=== PATIENT | male | born 1945 | race Caucasian/White ===

== ENCOUNTER 2024-02-11 20:01 | Inpatient (IN) | payer OTHER, SELFPAY ==
[2024-02-11 17:16] VITALS: BP 132/62; BMI 23.9
--- NOTE | 2024-02-11 17:33 | ED.GENMED ---
History of Present Illness
General
Chief Complaint: Weakness
Source: patient
Exam Limitations: none
Time Seen by Provider: 02/11/24 17:17
Travel History
Have you had any contact with someone who has COVID-19?: No
Do you have any symptoms of coronavirus? Fever > 100 degrees, chills, cough, shortness of breath, sore throat, loss of taste or smell, muscle aches, or headache?: No
History of Present Illness
History of Present Illness:
See MDM
Past History
Past History
ED Past Medical History: GERD, HTN and Hypothyroidism
ED Past Surgical History: Cardiac (Pacemaker)
Phy Exam
Physical Exam
Physical Exam:
See MDM
Course
Orders/Labs/Results
Orders:
Orders
02/11/24 17:17
EKG [Electrocardiogram (*1)] Urgent
Reason for Study: Tachycardia
EKG- Treatment ONCE
02/11/24 17:23
Complete Blood Count/With Diff Urgent
Comprehensive Metabolic Panel Urgent
02/11/24 17:30
CT Chest Pe Study Urgent
Comment:
Reason For Exam: hemoptysis, SOB
02/11/24 17:31
NT-proBNP Urgent
PTT Urgent
Prothrombin Time Urgent
Troponin I Urgent
02/11/24 17:33
COVID-19 Antigen Urgent
Source: Nasal Swab
02/11/24 18:50
Azithromycin 500 mg/250 ml [Zithromax Infusion] 500 mg in 250 ml IV NOW
CefTRIAXone [Rocephin] 2,000 mg IV NOW STA
02/11/24 19:04
Blood Culture Q30M
NAVI Source: Blood/Venous
Specimen Description:
02/11/24 19:30
Blood Culture Q30M
NAVI Source: Blood/Venous
Specimen Description:
Abnormal Lab Results
02/11/24
17:23
RBC 4.26 L 10^6/uL
(4.70-6.10)
Hgb 12.4 L g/dL
(13.0-18.0)
Hct 35.9 L %
(39.0-52.0)
Absolute Lymphs (auto) 0.7 L 10^3/uL
(1.2-3.4)
Absolute Monos (auto) 0.7 H 10^3/uL
(0.1-0.6)
Neutrophils % 75.6 H %
(42.2-75.2)
Lymphocytes % 10.0 L %
(20.5-51.1)
Glucose 145 H mg/dl
(70-99)
AST 16 L U/L
(17-59)
Total Protein 5.7 L g/dl
(6.3-8.2)
Albumin 3.4 L g/dl
(3.5-5.0)
02/11/24 17:23
02/11/24 17:23
Vital Signs
Initial and Last Documented VS:
Initial Vital Signs
Temp Pulse Resp BP Pulse Ox
98.4 F 85 22 132/62 95
02/11/24 17:16 02/11/24 17:16 02/11/24 17:16 02/11/24 17:16 02/11/24 17:16
Last Documented Vital Signs
Temp Pulse Resp BP Pulse Ox
98.4 F 73 13 132/62 94
02/11/24 17:16 02/11/24 17:45 02/11/24 17:45 02/11/24 17:16 02/11/24 17:45
MDM/Problems Addressed
Differential Diagnosis Includes:
HPI and MDM Narrative:
78-year-old male presenting with shortness of breath with exertion. Patient has a history of pacemaker and COPD but seems unsure with history of cardiac stents. Patient states his COPD is otherwise well-controlled. Symptoms have been ongoing for
the past week or so. He denies chest pain. He has noted increased cough now with blood-tinged phlegm. Patient denies being on blood thinners
Given his hemoptysis with shortness of breath with exertion, will obtain CT to rule out PE. Will obtain EKG and troponin and we will consider admitting given age and complaint
Patient denies history of cardiac stents but son believes patient has stents
Physical exam
General: Well appearing and non-toxic
HEENT: protecting airway
Neck: appears supple
CV: No evidence of cyanosis. Regular rate and rhythm
Resp: No accessory muscle use. Lungs clear
Abd: Non-distended
Extremities: No deformities
Neuro: alert
Psych: Normal affect
Skin: Intact
Problems Addressed including Acute and Chronic Conditions affecting care:
1. Hemoptysis
Acuity: acute
Prognosis: stable
Details: We will obtain CT to rule out pulmonary embolism
2. Exertional dyspnea
Acuity: acute
Prognosis: stable
Details: Given age and complaint, will obtain troponin
3. Multifocal pneumonia
Acuity: acute
Prognosis: stable
Details: Patient started on IV azithromycin and IV Rocephin
Updates
CT shows no evidence of PE but there is evidence of multifocal pneumonia. I had a long discussion with patient and family at bedside. Given his symptoms, will start IV antibiotics and admit
Differential Diagnosis (but not limited to): Pneumonia, pulmonary embolism, ACS
Testing considered: D-dimer but will go straight to CT given his complaint
Drug therapy (if applicable): OTC meds, please see d/c instruction regarding Rx drugs
Amount and/or Complexity of Data Reviewed
Clinical info obtained from: Patient. Son at bedside indicating that his cardiac office wanted him to go to the hospital on Friday for evaluation
External data reviewed: N/A
Labs I independently reviewed (but not limited to): Troponin normal
Radiology: The CT scan was personally and independently reviewed. In addition, official CT report reviewed.
Pulse Ox: not hypoxic
EKG independently reviewed: Sinus rhythm, bifascicular block, no STEMI
District Supervisor: Paced rhythm
Critical Care: N/A
Risk of Complication:
Social Determinants of health: Good social support
Discussed with other providers: hospitalist
Escalation of Care includes Admit/Obs: Given the multifocal pneumonia with exertional dyspnea, will start IV antibiotics and admit
Occasional wrong word or 'sound a like' substitutions may have occurred due to the inherent limitations of voice recognition software. Read the chart carefully and recognize, using context, where substitutions have occurred.
*Critical Care Note
Total Time (30-74mins, 75-104mins- exclusive of procedures): Not Applicable
ED Attending Note
-
Portions of this chart may have been created with voice recognition software.� Occasional wrong word or��sound alike� substitutions may have occurred due to the inherent limitations of voice recognition software.
Discharge Plan
Departure
Patient Disposition: Admit
Date of Disposition: 02/11/24
Time of Disposition: 19:29
Admit to: Med/Surg
Presentation/result/management discussed w/ accepting MD/DO: Hospitalist
Discharge Problem:
Multifocal pneumonia, [place] (dyspnea on exertion)
Prescriptions:
No Action
atorvastatin 80 mg Tablet
40 mg PO QPM
omeprazole 40 mg Capsule,Delayed Release(Dr/Ec)
40 mg PO DAILY
levothyroxine 100 mcg Tablet
100 mcg PO DAILY
losartan 100 mg Tablet
100 mg PO DAILY
fluticasone propionate 50 mcg/actuation [place],Suspension
1 spray INTRANASAL BID
duloxetine 60 mg Capsule,Delayed Release(Dr/Ec)
60 mg PO DAILY
fluticasone propion-salmeterol [Wixela Inhub] 250-50 mcg/dose Blister With Device
1 inh INHALATION R BID
aspirin 81 mg Tablet,Delayed Release (Dr/Ec)
81 mg PO DAILY
tamsulosin 0.4 mg Capsule
0.4 mg PO QPM
albuterol sulfate 90 mcg/actuation Hfa Aerosol Inhaler
2 puff INHALATION R Q4 PRN (Reason: sob/wheezing)
tiotropium bromide [Spiriva with HandiHaler] 18 mcg capsule, w/inhalation device
1 cap inhalation R DAILY
Referrals:
Marti Casey NP [Family Provider] -
Interventions
Interventions:
*Risk Screen - Suicide Last Done: 02/11/24 17:16
*General Assessment Last Done: 02/11/24 17:16
*Neglect/Abuse Screening Last Done: 02/11/24 17:16
ED- Fall Risk Assessment Last Done: 02/11/24 17:21
*ED COVID-19 Vaccine History Last Done: 02/11/24 17:16
ED- Cardiac Assessment Last Done: 02/11/24 17:21
ED- Neurological Assessment Last Done: 02/11/24 17:21
ED- Pulmonary Assessment Last Done: 02/11/24 17:21
Discharge Date and Time
Print Language: UKRAINIAN
[2024-02-11 17:35] LABS: % Basophils 0.5 % (0-2); % Eosinophils 4.6 % (0-6); % Immature Granulocytes 0.4 % (0-0.5); % Monocytes 8.9 % (1.7-9.3); % Neutrophils 75.6 % (42.2-75.2); Absolute Eosinophils 0.3 10^3/uL (0-0.7); Absolute Lymphocytes 0.7 10^3/uL (1.2-3.4); Absolute Monocytes 0.7 10^3/uL (0.1-0.6); Absolute Neutrophils 5.6 10^3/uL (1.4-6.5); Hematocrit 35.9 % (39.0-52.0); Hemoglobin 12.4 g/dL (13.0-18.0); Mean Corp Hgb Conc. 34.5 g/dL (33.0-37.0); Mean Corpuscular Hgb 29.1 pg (27.0-31.0); Mean Corpuscular Volume 84.3 fL (80.0-94.0); Mean Platelet Volume 9.2 fL (7.4-10.4); Nucleated Red Blood Cells % 0 % (-); Platelet Count 282 10^3/uL (130-400); Red Blood Cell Count 4.26 10^6/uL (4.70-6.10); Red Cell Dist. Width 13.6 % (11.5-14.5); White Blood Cell Count 7.4 10^3/uL (4.8-10.8)
[2024-02-11 17:50] LABS: INR 1.05; PT 13.7 Sec (11.4-14.6)
[2024-02-11 17:50] LABS: ALT (SGPT) 13 U/L (0-50); AST (SGOT) 16 U/L (17-59); Albumin 3.4 g/dl (3.5-5.0); Alkaline Phosphatase 92 U/L (38-126); Blood Urea Nitrogen 19 mg/dl (9-20); Calcium 8.5 mg/dl (8.4-10.2); Carbon Dioxide 26 mmol/L (22-30); Chloride 103 mmol/L (98-107); Estimated Creatinine Clearance 61 ml/min; Glucose 145 mg/dl (70-99); Potassium 3.7 mmol/L (3.5-5.1); Sodium 135 mmol/L (135-145); Total Bilirubin 1.3 mg/dl (0.2-1.3); Total Protein 5.7 g/dl (6.3-8.2); eGFR > 60.00
[2024-02-11 17:51] LABS: APTT 30.8 Sec (23.4-35.0)
[2024-02-11 17:56] LABS: COVID-19 Antigen Negative (Negative)
[2024-02-11 18:05] LABS: NT-proBNP 80.9 pg/ml; Troponin I < 0.012 ng/ml
[2024-02-11 18:56] VITALS: BP 116/61
[2024-02-11] MEDS: ZITHROMAX INFUSION 250 IV (19:05)
[2024-02-11] MEDS: ROCEPHIN 2000 MG IV (19:05)
[2024-02-11 20:00] VITALS: BP 120/62
--- NOTE | 2024-02-11 20:03 | HPS.HSE ---
Family Physician
-
Family Physician: Marti Casey NP
Chief Complaint
-
cough, shortness of breath
History of Present Illness
78-year-old male with past medical history of CAD with possible stent, bradycardia status post pacemaker, COPD, hyperlipidemia, hypertension, hypothyroidism, depression, BPH presenting with shortness of breath and cough with black sputum.
Patient states that he drank 4-5 beers on Friday and felt that he had a hangover afterwards. The next day he had multiple episodes of vomiting with dark black-colored vomit. He denies any abdominal pain or chest pain at that time. Vomiting
resolved that day. Since that time he has had shortness of breath and productive cough that is also black. He has some discomfort when he takes a deep breath. He denies any bright red blood in the sputum. He denies any diarrhea or blood in the
stool or black stool. He denies any fevers or chills.
Patient drinks alcohol every Friday. He denies smoking or any drugs.
Medical History
Past Medical History
Past Medical History: Reports Other (CAD with possible stent, bradycardia status post pacemaker, COPD, hyperlipidemia, hypertension, hypothyroidism, depression, BPH)
Past Surgical History: Reports None
Social History
Tobacco: Non-smoker
Alcohol: Occasional
Drug: None
Family History
Family History: Not pertinent
Allergies / Home Medications
Allergies reflects when Allergies were last updated in [facility].
Home Medications with original date entered in [facility]
Allergy/Medication List:
Allergies
Allergy/AdvReac Type Severity Reaction Status Date / Time
No Known Allergies Allergy Verified 02/11/24 17:28
Home Medications
atorvastatin 80 mg tablet 40 mg PO QPM High Cholesterol 05/23/23
duloxetine 60 mg capsule,delayed release 60 mg PO DAILY Mental Health/Anxiety 05/23/23
fluticasone propionate 50 mcg/actuation nasal spray,suspension 1 spray intranasal BID Allergies 05/23/23
levothyroxine 100 mcg tablet 100 mcg PO DAILY Thyroid 05/23/23
losartan 100 mg tablet 100 mg PO DAILY Blood Pressure 05/23/23
omeprazole 40 mg capsule,delayed release 40 mg PO DAILY Gastrointestinal Issue 05/23/23
albuterol sulfate 90 mcg/actuation aerosol inhaler 2 puff inhalation R Q4 PRN sob/wheezing 02/11/24
aspirin 81 mg tablet,delayed release 81 mg PO DAILY 02/11/24
fluticasone 250 mcg-salmeterol 50 mcg/dose blistr powdr for inhalation (Wixela Inhub) 1 inh inhalation R BID 02/11/24
tamsulosin 0.4 mg capsule 0.4 mg PO QPM 02/11/24
tiotropium bromide 18 mcg capsule with inhalation device (Spiriva with HandiHaler) 1 cap inhalation R DAILY 02/11/24
Review of Systems
-
History Source: Patient
A 12 point ROS was completed and negative except as noted: Yes
Constitutional: Reports No Symptoms
EENT: Reports No Symptoms
Respiratory: Reports See HPI
Cardiac: Reports See HPI
Abdomen/GI: Reports See HPI
: Reports No Symptoms
Musculoskeletal: Reports No Symptoms
Skin: Reports No Symptoms
Neurological: Reports No Symptoms
Endocrine: Reports No Symptoms
Hematologic/Lymphatic: Reports No Symptoms
Psych: Reports No Symptoms
Physical Exam
Vital Signs
Vital Signs
Temp Pulse Resp BP Pulse Ox
98.4 F 71 19 116/61 98
02/11/24 17:16 02/11/24 19:30 02/11/24 19:30 02/11/24 18:56 02/11/24 19:30
Physical Exam
General: Well Developed, Well Nourished and No Apparent Distress
HEENT: NormoCephalic, Moist mucous membranes and Atraumatic
Respiratory: Clear
Cardiac: S1/S2 and Regular Rhythm; No Murmur or Rub
GI: Soft, Non Tender, Non Distended and Normal Bowel Sounds; No Organomegaly
Rectal: Deferred by Provider
Musculoskeletal: No Clubbing, No Cyanosis and No Edema
Skin: No Rash
Neuro: Nonfocal/grossly intact
Laboratory Results
-
02/11/24 17:23
02/11/24 17:23
Laboratory Results
PT 13.7 Sec (11.4-14.6) 02/11/24 17:31
INR 1.05 02/11/24 17:31
APTT 30.8 Sec (23.4-35.0) 02/11/24 17:31
Total Bilirubin 1.3 mg/dl (0.2-1.3) 02/11/24 17:23
AST 16 U/L (17-59) L 02/11/24 17:23
ALT 13 U/L (0-50) 02/11/24 17:23
Alkaline Phosphatase 92 U/L (38-126) 02/11/24 17:23
Troponin I < 0.012 ng/ml 02/11/24 17:31
Data Reviewed
-
Lab Data: Labs Reviewed by me
Old Records: Reviewed
Impression/Plan
-
IMPRESSION:
PLAN:
# Likely aspiration pneumonia with hemotypsis from vomiting episodes
-CT chest shows no evidence of pulmonary embolism, there is confluent nodular and patchy groundglass opacities throughout the right lung and a few small nodular groundglass opacities in the left lower lobe most suspicious for pneumonia
-Check sputum culture
-Check blood cultures
-Zosyn
# Vomiting episodes secondary to gastritis from excessive alcohol use
# Possibly Christal-Barrera tear with hematemesis which is resolved
-No more hematemesis
-Hemoglobin 12.4
-Continue omeprazole
CAD possible stent
-Hold aspirin
History of pacemaker
Essential hypertension
-Continue losartan
COPD
-Continue inhalers
Hyperlipidemia
-Continue statin
Hypothyroidism
-Continue levothyroxine
Depression
-Continue duloxetine
BPH
-Continue tamsulosin
DNR/DNI
DVT prophylaxis�SCDs
Regular diet
[2024-02-11 21:22] VITALS: BP 126/63
[2024-02-11 21:25] VITALS: BMI 23.9
[2024-02-11] MEDS: COMPAZINE 10 MG IV (21:39)
[2024-02-11] MEDS: ADVAIR HFA 115/21 MCG INHALER 2 PUFF INH (21:55)
[2024-02-11] MEDS: ZOSYN 50 IV (23:49)
[2024-02-11 23:56] VITALS: BP 110/56
--- NOTE | 2024-02-12 00:08 | PTCARENOTE ---
Pt. arrived to unit from ED via stretcher. Pt. safely ambulated into room 318-2 on x1 assist. Pt. c/o nausea upon arrival to floor. WILLIE Cope notified. See MAR for administration. Pt. AAOx3 and able to make needs known. Oriented to
unit. Call jean within reach. Plan of care ongoing.
[2024-02-12] MEDS: SYNTHROID 100 MCG PO (05:56)
[2024-02-12] MEDS: ZOSYN 50 IV ×4 (05:56→23:23)
[2024-02-12 07:11] LABS: % Basophils 0.9 % (0-2); % Eosinophils 7.7 % (0-6); % Immature Granulocytes 0.5 % (0-0.5); % Lymphocytes 11.9 % (20.5-51.1); % Monocytes 10.1 % (1.7-9.3); % Neutrophils 68.9 % (42.2-75.2); Absolute Basophils 0.1 10^3/uL (0-0.2); Absolute Eosinophils 0.5 10^3/uL (0-0.7); Absolute Lymphocytes 0.8 10^3/uL (1.2-3.4); Absolute Monocytes 0.6 10^3/uL (0.1-0.6); Absolute Neutrophils 4.4 10^3/uL (1.4-6.5); Hematocrit 35.4 % (39.0-52.0); Hemoglobin 11.9 g/dL (13.0-18.0); Mean Corp Hgb Conc. 33.6 g/dL (33.0-37.0); Mean Corpuscular Volume 86.3 fL (80.0-94.0); Mean Platelet Volume 9.7 fL (7.4-10.4); Nucleated Red Blood Cells % 0 % (-); Platelet Count 243 10^3/uL (130-400); Red Cell Dist. Width 13.5 % (11.5-14.5); White Blood Cell Count 6.4 10^3/uL (4.8-10.8)
[2024-02-12 07:27] LABS: ALT (SGPT) < 10 U/L (0-50); AST (SGOT) 13 U/L (17-59); Albumin 2.9 g/dl (3.5-5.0); Alkaline Phosphatase 76 U/L (38-126); Blood Urea Nitrogen 14 mg/dl (9-20); Calcium 8.4 mg/dl (8.4-10.2); Carbon Dioxide 25 mmol/L (22-30); Chloride 105 mmol/L (98-107); Estimated Creatinine Clearance 68 ml/min; Glucose 104 mg/dl (70-99); Potassium 3.6 mmol/L (3.5-5.1); Sodium 135 mmol/L (135-145); Total Protein 5.2 g/dl (6.3-8.2); eGFR > 60.00
[2024-02-12 07:32] VITALS: BP 109/58
[2024-02-12] MEDS: SPIRIVA RESPIMAT 2.5 MCG 2 PUFF INH (07:56)
[2024-02-12] MEDS: ADVAIR HFA 115/21 MCG INHALER 2 PUFF INH (07:56)
[2024-02-12] MEDS: COZAAR 100 MG PO (08:42)
[2024-02-12] MEDS: CYMBALTA DELAYED RELEASE 60 MG PO (08:42)
[2024-02-12] MEDS: PROTONIX 40 MG PO (08:42)
[2024-02-12 10:45] LABS: Hepatitis C Antibody Negative (Negative)
--- NOTE | 2024-02-12 11:45 | W.PN.HOSP.TC ---
Today's Communication/Plan
-
Await blood cultures
Sputum sample pending
IV antibiotics for now
Monitor vitals
Assessment / Plan
Assessment / Plan
# Shortness of breath ikely aspiration pneumonia with hemotypsis from vomiting episodes
-CT chest shows no evidence of pulmonary embolism, there is confluent nodular and patchy groundglass opacities throughout the right lung and a few small nodular groundglass opacities in the left lower lobe most suspicious for pneumonia
-Check sputum culture
-Check blood cultures in lab
-No further episode of nausea or vomiting. Brown-colored stool. Hemoglobin stable 11.9.
-Zosyn
# Vomiting episodes secondary to gastritis from excessive alcohol use
# Possibly Christal-Barrera tear with hematemesis which is resolved
-No more hematemesis
-Hemoglobin stable
-Continue omeprazole
CAD possible stent
-restart aspirin
History of pacemaker
Essential hypertension
-Continue losartan
COPD
-Continue inhalers
Hyperlipidemia
-Continue statin
Hypothyroidism
-Continue levothyroxine
Depression
-Continue duloxetine
BPH
-Continue tamsulosin
DNR/DNI
DVT prophylaxis�SCDs
Anticipated Discharge: Within 24 hours
Subjective/Interval History
-
Date of Service: February 12, 2024
Denies any further episode of nausea vomiting
States having brown-colored stools
Denies any further episodes of vomiting
Having productive sputum
Objective Data
-
Labs:
Laboratory Results
02/12/24
06:35
WBC 6.4
Hgb 11.9 L
Hct 35.4 L
Plt Count 243
Sodium 135
Potassium 3.6
Chloride 105
Carbon Dioxide 25
BUN 14
Creatinine 0.9
Glucose 104 H
Calcium 8.4
Total Bilirubin 1.0
AST 13 L
ALT < 10
Alkaline Phosphatase 76
Vital Signs:
Vital Signs
Temp Pulse Resp BP Pulse Ox
97.8 F 66 16 109/58 94
02/12/24 07:32 02/12/24 08:42 02/12/24 07:32 02/12/24 08:42 02/12/24 07:32
I&O
02/11/24 02/12/24 02/13/24
06:59 06:59 06:59
Intake Total 240 / 240
Balance 240 / 240
Physical Exam
-
General: Well Developed and No Apparent Distress
HEENT: Normocephalic, Atraumatic and Moist Mucous Membranes
Respiratory: Decreased Breath Sounds
Cardiac: Regular Rhythm and S1/S2; Negative Murmur, Rub or Gallop
GI: Soft, Nontender, Nondistended and Normal Bowel Sounds; Negative Organomegaly
Rectal: Deferred by Provider
Musculoskeletal: No Clubbing, No Cyanosis and No Edema
Skin: Negative Rash
Neuro: Awake, No Motor Deficits and Nonfocal/Grossly Intact
Psych: Calm
[2024-02-12 15:09] VITALS: BP 116/58
[2024-02-12] MEDS: LIPITOR 40 MG PO (18:24)
[2024-02-12] MEDS: FLOMAX 0.400000000000000022 MG PO (18:24)
[2024-02-12 23:29] VITALS: BP 122/67
[2024-02-13] MEDS: ZOSYN 50 IV ×2 (05:25→11:43)
[2024-02-13] MEDS: SYNTHROID 100 MCG PO (05:26)
[2024-02-13 07:51] VITALS: BP 119/60
[2024-02-13] MEDS: SPIRIVA RESPIMAT 2.5 MCG 2 PUFF INH (08:20)
[2024-02-13] MEDS: ADVAIR HFA 115/21 MCG INHALER 2 PUFF INH (08:20)
[2024-02-13] MEDS: COZAAR 100 MG PO (08:38)
[2024-02-13] MEDS: ASPIR LOW (ENTERIC COATED) 81 MG PO (08:38)
[2024-02-13] MEDS: CYMBALTA DELAYED RELEASE 60 MG PO (08:38)
[2024-02-13] MEDS: PROTONIX 40 MG PO (08:38)
--- NOTE | 2024-02-13 12:09 | W.PN.HOSP.TC ---
Today's Communication/Plan
-
po abx on dc
Assessment / Plan
Assessment / Plan
# Shortness of breath likely aspiration pneumonia with hemotypsis from vomiting episodes
-CT chest shows no evidence of pulmonary embolism, there is confluent nodular and patchy groundglass opacities throughout the right lung and a few small nodular groundglass opacities in the left lower lobe most suspicious for pneumonia
-Check sputum culture normal respiratory laine
-Blood cultures preliminary negative.
-No further episode of nausea or vomiting. Brown-colored stool. Hemoglobin stable 11.9.
-Zosyn switched to Augmentin at discharge.
# Vomiting episodes secondary to gastritis from excessive alcohol use resolved.
# Possibly Christal-Barrera tear with hematemesis which is resolved
-No more hematemesis
-Hemoglobin stable
-Continue omeprazole
CAD possible stent
-restart aspirin
History of pacemaker
Essential hypertension
-Continue losartan
COPD
-Continue inhalers
Hyperlipidemia
-Continue statin
Hypothyroidism
-Continue levothyroxine
Depression
-Continue duloxetine
BPH
-Continue tamsulosin
Alcohol abuse
-Counseled on complete cessation. Patient verbalized understanding and stated he will stop drinking.
DNR/DNI
DVT prophylaxis�SCDs
More than 30 minutes spent in discharge including
Final examination of the patient
Summarizing hospital stay
Instructions for continuing care to all relevant caregivers
Preparation of discharge records, prescriptions, and referral forms
Total time spent (in minutes): 40
Anticipated Discharge: Today
Subjective/Interval History
-
Date of Service: February 13, 2024
States feeling back to normal
Denies any productive cough
Still had bowel movement with no blood in it
Tolerating diet
On room air
Afebrile
Objective Data
-
Vital Signs:
Vital Signs
Temp Pulse Resp BP Pulse Ox
98.2 F 68 16 119/60 97
02/13/24 07:51 02/13/24 08:25 02/13/24 08:25 02/13/24 07:51 02/13/24 08:25
I&O
02/12/24 02/13/24 02/14/24
06:59 06:59 06:59
Intake Total 240 / 240 820 / 820
Balance 240 / 240 820 / 820
Physical Exam
-
General: Well Developed and No Apparent Distress
HEENT: Normocephalic, Atraumatic and Moist Mucous Membranes
Respiratory: Clear to Auscultation
Cardiac: Regular Rhythm and S1/S2; Negative Murmur, Rub or Gallop
GI: Soft, Nontender, Nondistended and Normal Bowel Sounds; Negative Organomegaly
Rectal: Deferred by Provider
Musculoskeletal: No Clubbing, No Cyanosis and No Edema
Skin: Negative Rash
Neuro: Awake, Alert, Oriented, AO x 3, No Motor Deficits and Nonfocal/Grossly Intact
Psych: Calm
--- NOTE | 2024-02-13 12:12 | W.DCSUMMARY ---
Discharge Summary
Discharge Data
Date of Admission: 02/11/24
Date of Discharge: 02/13/24
-
Pending Results: No
Hospital Course
78 yo M with past medical history of COPD, hyperlipidemia, potassium, depression of BPH, CAD status post stent, pacemaker, alcohol abuse who is presented with nausea vomiting. Patient stated he had multiple beers and subsequently afterwards had
episodes of severe nausea and vomiting. Patient is a multiple episode of vomiting with possible blood in vomitus. Patient's symptoms resolved. Patient was complaining of shortness of breath. Patient underwent CT chest on admission CT chest shows
no evidence of pulmonary embolism, there is confluent nodular and patchy groundglass opacities throughout the right lung and a few small nodular groundglass opacities in the left lower lobe most suspicious for pneumonia. Patient was started on IV
Zosyn. Patient did not have any further episode of nausea or vomiting. Patient blood cultures remain negative. Sputum culture normal respiratory laine. Patient hemoglobin remained stable. Patient was having solid formed brown-colored bowel
movements. Patient without any nausea or vomiting. Patient was tolerating diet. IV Zosyn was transitioned to p.o. Augmentin on discharge. Patient be discharged home. Patient was counseled on complete alcohol cessation. Patient verbalized
understanding.
Discharge Plan
-
Patient Disposition: Home (Routine Discharge)
Discharge Diagnosis/Procedures: Shortness of breath likely secondary to aspiration pneumonia/pneumonitis from recent severe vomiting
Alcohol abuse
Nausea and vomiting
Condition: Fair
Diet: As tolerated and Regular
Activity: With assistance
Driving Restrictions: As prior to admission
Referrals:
Marti Casey NP [Family Provider] - in less than 1 week
Prescriptions:
New
amoxicillin-pot clavulanate 875-125 mg tablet
1 tab PO BID Qty: 10 0RF
Continued
atorvastatin 80 mg Tablet
40 mg PO QPM
omeprazole 40 mg Capsule,Delayed Release(Dr/Ec)
40 mg PO DAILY
levothyroxine 100 mcg Tablet
100 mcg PO DAILY
losartan 100 mg Tablet
100 mg PO DAILY
fluticasone propionate 50 mcg/actuation [place],Suspension
1 spray INTRANASAL BID
duloxetine 60 mg Capsule,Delayed Release(Dr/Ec)
60 mg PO DAILY
fluticasone propion-salmeterol [Wixela Inhub] 250-50 mcg/dose Blister With Device
1 inh INHALATION R BID
aspirin 81 mg Tablet,Delayed Release (Dr/Ec)
81 mg PO DAILY
tamsulosin 0.4 mg Capsule
0.4 mg PO QPM
albuterol sulfate 90 mcg/actuation Hfa Aerosol Inhaler
2 puff INHALATION R Q4 PRN (Reason: sob/wheezing)
tiotropium bromide [Spiriva with HandiHaler] 18 mcg capsule, w/inhalation device
1 cap inhalation R DAILY
Discharge Orders:
Discharge Patient (As Directed); Ordered 02/13/24
Ordered By: Arron Jeffries
Discharge Date and Time
Discharge Date/Time: 02/13/24 13:55
Print Language: MAORI
[2024-02-13 13:08] VITALS: BP 121/55
== END 2024-02-13 13:55 | disposition home or self-care (01) | DRG 177 ==
LOC: 3 WEST ACU 20:01
PROVIDERS: ADMITTING PHYSICIAN Hospitalist; ATTENDING PHYSICIAN Hospitalist; EMERGENCY PHYSICIAN Student in an Organized Health Care Education/Training Program; FAMILY PHYSICIAN Nurse Practitioner Adult Health
DX: J69.0 Pneumonitis due to inhalation of food and vomit (principal); K22.6 Gastro-esophageal laceration-hemorrhage syndrome; R04.2 Hemoptysis; E03.9 Hypothyroidism, unspecified; I10 Essential (primary) hypertension; F10.10 Alcohol abuse, uncomplicated; I25.10 Atherosclerotic heart disease of native coronary artery without angina pectoris; E78.5 Hyperlipidemia, unspecified; J44.9 Chronic obstructive pulmonary disease, unspecified; F32.A Depression, unspecified; N40.0 Benign prostatic hyperplasia without lower urinary tract symptoms; K21.9 Gastro-esophageal reflux disease without esophagitis; Z66 Do not resuscitate; Z95.0 Presence of cardiac pacemaker; Z79.890 Hormone replacement therapy; Z79.82 Long term (current) use of aspirin; Z79.51 Long term (current) use of inhaled steroids; Z87.19 Personal history of other diseases of the digestive system; Z11.52 Encounter for screening for COVID-19
CPT/HCPCS: 71275; 80053; 83880; 84484; 85025; 85610; 85730; 86803; 87040; 87070; 87205; 87811; 93005; 94640; 96365; 96375; 99285; Q9967

== ENCOUNTER → 2024-07-15 12:25 | Outpatient (REF) | payer OTHER, SELFPAY | LOC: HWRAD 12:25 | PROVIDERS: ATTENDING PHYSICIAN Nurse Practitioner Family | DX: Z87.01 Personal history of pneumonia (recurrent) (principal) | CPT/HCPCS: 71046 ==

== ENCOUNTER → 2024-07-19 12:55 | Outpatient (REF) | payer OTHER, SELFPAY | LOC: HWRAD 12:55 | PROVIDERS: ATTENDING PHYSICIAN Nurse Practitioner Family; FAMILY PHYSICIAN Nurse Practitioner Adult Health | DX: R93.89 Abnormal findings on diagnostic imaging of other specified body structures (principal) | CPT/HCPCS: 71250 ==

== ENCOUNTER 2024-11-29 16:27 | Inpatient (IN) | payer OTHER, SELFPAY ==
[2024-11-29] VITALS (24 sets, daily range): BP systolic 72–123; BP diastolic 40–77; BMI 23.8
[2024-11-29] MEDS: NSS 1000 IV ×3 (13:40→20:34)
[2024-11-29 13:51] LABS: INR 1.04; PT 13.9 Sec (11.4-14.6)
[2024-11-29 13:52] LABS: APTT 25.6 Sec (23.4-35.0)
[2024-11-29 13:57] LABS: ALT (SGPT) 14 U/L (0-50); AST (SGOT) 19 U/L (17-59); Albumin 3.7 g/dl (3.5-5.0); Alkaline Phosphatase 78 U/L (38-126); Blood Urea Nitrogen 22 mg/dl (9-20); Carbon Dioxide 23 mmol/L (22-30); Chloride 100 mmol/L (98-107); Glucose 82 mg/dl (70-99); Potassium 4.2 mmol/L (3.5-5.1); Sodium 136 mmol/L (135-145); Total Bilirubin 2.8 mg/dl (0.2-1.3); Total Protein 5.4 g/dl (6.3-8.2); eGFR 28.53
--- NOTE | 2024-11-29 14:00 | ED.GENMED ---
History of Present Illness
General
Chief Complaint: Fainting/Passed Out
Time Seen by Provider: 11/29/24 13:10
History of Present Illness
History of Present Illness:
79-year-old male with history of COPD and hypertension presenting after a fall. Patient reports he was on the toilet and was having a bowel movement and passed out. He fell forward, striking his head and hit the right side of his chest on the
toilet paper [place]mlin. Daughter at bedside notes that he was drinking a lot yesterday and did have some episodes of vomiting prior to syncopal episode. He is now reporting shortness of breath and some cough. He does not wear oxygen at home. Denies
any neck pain. Denies abdominal pain or pain to his legs. Denies recent fever or illness. Daughter at bedside does note history of pneumonia and aspiration in the past. Denies additional acute medical complaints
Past History
Past History
ED Past Medical History: GERD, HTN and Hypothyroidism
ED Past Surgical History: Cardiac (Pacemaker)
Phy Exam
Physical Exam
Physical Exam:
General: Increased respiratory effort
HEENT: protecting airway
Head: Mild ecchymosis to the right cheek. Otherwise no additional signs of trauma to the head.
Neck: appears supple, no midline cervical tenderness
CV: Normal heart rate, regular rhythm, no evidence of cyanosis
Resp: Tachypnea with increased work of breathing. Diminished air movement bilaterally. Reproducible tenderness to the right anterior chest wall. No crepitus
Abd: No tenderness to palpation
Extremities: No deformities, no swelling, no erythema
Neuro: alert, no focal neurologic deficit
: deferred
Rectal: deferred
Psych: Normal affect
Skin: Intact
Course
Orders/Labs/Results
Orders:
Orders
11/29/24 13:04
CR Chest Portable - 1 View Urgent
Comment:
Reason For Exam: SOB, fall
Reason Study Needs to be Portable: Unable to Transport
11/29/24 13:34
Complete Blood Count/With Diff Urgent
Comprehensive Metabolic Panel Urgent
Manual Differential Urgent
NT-proBNP Urgent
PTT Urgent
Prothrombin Time Urgent
Troponin I Urgent
11/29/24 13:40
0.9% Sodium Chloride 1000 ml [Nss] 1,000 ml IV BOLUS
11/29/24 13:59
CT Chest W/o Iv Contrast Urgent
Comment:
Reason For Exam: fall, sob, right rib pain
11/29/24 14:06
CT Head W/o Iv Contrast Urgent
Comment:
Reason For Exam: fall
11/29/24 14:46
0.9% Sodium Chloride 1000 ml [Nss] 1,000 ml IV BOLUS
11/29/24 14:55
Cefepime HCl [Maxipime] 2,000 mg IV NOW STA
Vancomycin [Vancocin] 2,000 mg 0.9% Sodium Chloride 500 ml [Nss] 500 ml IV NOW
11/29/24 14:57
Zosyn 4.5 grams IVPB NOW Piperacillin/Tazo 4.5 Gram [Zosyn] 4.5 gram in 100 ml IV NOW
11/29/24 15:00
Blood Culture Q30M
NAVI Source: Blood/Venous
Specimen Description:
11/29/24 15:30
Blood Culture Q30M
NAVI Source: Blood/Venous
Specimen Description:
Abnormal Lab Results
11/29/24
13:34
WBC 4.5 L 10^3/uL
(4.8-10.8)
Band Neutrophils 39 H %
(0-3)
Lymphocytes (Manual) 11 L %
(20-51)
BUN 22 H mg/dl
(9-20)
Creatinine 2.3 H mg/dL
(0.7-1.3)
Total Bilirubin 2.8 H mg/dl
(0.2-1.3)
Total Protein 5.4 L g/dl
(6.3-8.2)
11/29/24 13:34
11/29/24 13:34
Vital Signs
Initial and Last Documented VS:
Initial Vital Signs
Pulse BP
78 80/45
11/29/24 12:37 11/29/24 12:37
Last Documented Vital Signs
Pulse Resp BP Pulse Ox
82 23 90/51 93
11/29/24 13:00 11/29/24 13:00 11/29/24 13:00 11/29/24 14:04
MDM/Problems Addressed
MDM/Problems Addressed:
79-year-old male with history of COPD and hypertension presenting after a syncopal episode and fall. Patient fell forward while on the toilet, striking his chest and his head. Vital signs on arrival significant for hypoxia.
On exam, patient is in mild respiratory distress with increased work of breathing and hypoxia. Immediate concern for pneumothorax in the setting of the right side of the chest. Diminished air movement to bilateral lung mae. Bedside x-ray
obtained, no obvious signs of pneumothorax, however there is significant opacities to the right lung field. Daughter notes the patient vomited prior to falling. Potential aspiration. Possible pulmonary contusion. Plan for laboratory analysis and
CT chest imaging. Will also obtain a CT of the brain given report the patient fell and struck his head, signs of head trauma. No midline tenderness of the cervical spine.
14:00 - Patient's kidney function is elevated. Blood pressure was initially on the low side, started on IV fluids. Will obtain CT without contrast
14:50 -CT brain is negative. Chest x-ray shows concern for pneumonia with no signs of trauma. At this time concern for septic process with source being pneumonia. Suspected aspiration. Antibiotics ordered. Will add blood cultures. Patient with
GRETA, continuing IV fluids. Plan for admission.
*Critical Care Note
Total Time (30-74mins, 75-104mins- exclusive of procedures): Not Applicable
ED Attending Note
-
Portions of this chart may have been created with voice recognition software.� Occasional wrong word or��sound alike� substitutions may have occurred due to the inherent limitations of voice recognition software.
Discharge Plan
Departure
Prescriptions:
No Action
atorvastatin 80 mg Tablet
40 mg PO QPM
omeprazole 40 mg Capsule,Delayed Release(Dr/Ec)
40 mg PO DAILY
levothyroxine 100 mcg Tablet
100 mcg PO DAILY
losartan 100 mg Tablet
100 mg PO DAILY
duloxetine 60 mg Capsule,Delayed Release(Dr/Ec)
60 mg PO DAILY
fluticasone propion-salmeterol [Wixela Inhub] 250-50 mcg/dose Blister With Device
1 inh INHALATION R BID
aspirin 81 mg Tablet,Delayed Release (Dr/Ec)
81 mg PO DAILY
tamsulosin 0.4 mg Capsule
0.4 mg PO QPM
albuterol sulfate 90 mcg/actuation Hfa Aerosol Inhaler
2 puff INHALATION R Q4 PRN (Reason: sob/wheezing)
tiotropium bromide [Spiriva with HandiHaler] 18 mcg capsule, w/inhalation device
1 cap inhalation R DAILY
[place] Nasal 0.65 % Aerosol,[place]
2 spray INTRANASAL BID
Referrals:
UNKNOWN - PT DOES,NOT KNOW [Family Provider] -
Interventions
Interventions:
*Risk Screen - Suicide Last Done: 11/29/24 12:37
*Neglect/Abuse Screening Last Done: 11/29/24 12:37
ED- Fall Risk Assessment Last Done: 11/29/24 13:11
ED- Cardiac Assessment Last Done: 11/29/24 13:10
ED- Neurological Assessment Last Done: 11/29/24 13:10
Discharge Date and Time
Print Language: INDONESIAN
[2024-11-29 14:05] LABS: Hematocrit 42.9 % (39.0-52.0); Hemoglobin 14.3 g/dL (13.0-18.0); Mean Corp Hgb Conc. 33.3 g/dL (33.0-37.0); Mean Corpuscular Hgb 28.1 pg (27.0-31.0); Mean Corpuscular Volume 84.4 fL (80.0-94.0); Mean Platelet Volume 9.4 fL (7.4-10.4); Platelet Count 225 10^3/uL (130-400); Red Blood Cell Count 5.08 10^6/uL (4.70-6.10); Red Cell Dist. Width 14.3 % (11.5-14.5); White Blood Cell Count 4.5 10^3/uL (4.8-10.8)
[2024-11-29 14:06] LABS: Absolute Neutrophils -Man Diff 3.6 10^3/uL (1.4-6.5); Band Neutrophils 39 % (0-3); Lymphocytes 11 % (20-51); Metamyelocytes 2 % (-); Monocytes 6 % (2-9); Segmented Neutrophils 42 % (42-75)
[2024-11-29 14:07] LABS: Normal RBC Morphology Yes; Platelets Checked Yes; Total Cells Counted 100
[2024-11-29 14:08] LABS: NT-proBNP 510 pg/ml; Troponin I 0.013 ng/ml
--- NOTE | 2024-11-29 14:37 | RESPNOTE ---
patient seen in ED on 6L, SpO2 89-91%. transitioned to 8L midflow with humidity, SpO2 improved to 92-93% on 8L after 1-2 min.
--- NOTE | 2024-11-29 15:11 | HPS.HSE ---
Family Physician
-
Family Physician: NOT KNOW UNKNOWN - PT DOES
Chief Complaint
-
Syncope, vomiting, right-sided chest pain, fall
History of Present Illness
79-year-old male complains he was drinking 8-10 beers yesterday . he normally drinks 5-6 beers every Friday only. He woke up this morning feeling dizzy was able to make it to the bathroom where he leaned over the toilet bowl and had 2 episodes of
vomiting then while trying to have a bowel movement had syncopal episode on the toilet with 1 episode of explosive watery brown diarrhea. He hit his right chest and head on the toilet paper roll. He states he woke up on the floor. He has an
abrasion to the left parietal scalp and tenderness to the right anterior breast about the fifth rib no visible contusion, has a visible right lower orbit contusion. He complains today of shortness of breath with a cough, right chest pain area of
contusion and with breathing.. His daughter states he has history of aspiration pneumonia in the past. He denies headache, neck pain, back pain, fever, chills, abdominal pain, diarrhea, urinary symptoms.
He has history of COPD, bronchospastic COPD, Hx aspiration pneumonia per family, right carotid stenosis status post stents February 2014 [place], permanent pacemaker 2010 [place], hypertension, hypothyroidism, GERD, depression, anxiety, PTSD, BPH,
prostate cancer status post radiation, left neck CA removal 20 years ago status post radiation/chemo, cigar smoker daily, chronic nasal polyps with chronic rhinorrhea
In the ER he was noted to be hypoxic 88% on 6 L nasal cannula requiring mid flow 8 L nasal cannula with O2 sat 93% he was also hypotensive 80/[address] showing pneumonia concerning for aspiration and labs showing GRETA.
Medical History
Past Medical History
Past Medical History: Reports Other
Additional Past Medical History:
COPD
bronchospastic COPD
Hx aspiration pneumonia per family,
right carotid stenosis status post stents February 2014 [place]
permanent pacemaker 2010 [place]
hypertension
hypothyroidism
GERD
depression, anxiety, PTSD
BPH
prostate cancer status post radiation,
left neck CA removal 20 years ago status post radiation/chemo
cigar smoker daily 3
Chronic nasal polyps with chronic rhinorrhea
Past Surgical History: Reports Other
Additional Past Surgical History:
left neck CA removal 20 years ago status post radiation/chemo
Pacemaker 2010 [facility]
Nasal polyps removed by ENT
Right carotid stenosis status post stent 03/15/2014 Dr. Garcia [facility]
Social History
Tobacco: Smoker (3 cigars a day)
Alcohol: Occasional (5-6 beers every Friday)
Drug: None
Personal:
Living: With Family ( Cherry and daughter Renetta)
Employment: Retired
Family History
Family History: Not pertinent
Allergies / Home Medications
Allergies reflects when Allergies were last updated in [employer].
Home Medications with original date entered in [employer]
Allergy/Medication List:
Allergies
Allergy/AdvReac Type Severity Reaction Status Date / Time
No Known Allergies Allergy Verified 11/29/24 12:39
Home Medications
atorvastatin 80 mg tablet 40 mg PO QPM High Cholesterol 05/23/23
duloxetine 60 mg capsule,delayed release 60 mg PO DAILY Mental Health/Anxiety 05/23/23
levothyroxine 100 mcg tablet 100 mcg PO DAILY Thyroid 05/23/23
losartan 100 mg tablet 100 mg PO DAILY Blood Pressure 05/23/23
omeprazole 40 mg capsule,delayed release 40 mg PO DAILY Gastrointestinal Issue 05/23/23
albuterol sulfate 90 mcg/actuation aerosol inhaler 2 puff inhalation R Q4 PRN sob/wheezing 02/11/24
aspirin 81 mg tablet,delayed release 81 mg PO DAILY Blood Clot Prevention/Tx 02/11/24
fluticasone 250 mcg-salmeterol 50 mcg/dose blistr powdr for inhalation (Wixela Inhub) 1 inh inhalation R BID Lung/Breathing Issues 02/11/24
tamsulosin 0.4 mg capsule 0.4 mg PO QPM Urinary Issue 02/11/24
tiotropium bromide 18 mcg capsule with inhalation device (Spiriva with HandiHaler) 1 cap inhalation R DAILY Lung/Breathing Issues 02/11/24
Flonase 2 spray intranasal DAILY AT 0700 11/29/24
sodium chloride 0.65 % nasal spray aerosol 2 spray intranasal BID 11/29/24
Review of Systems
-
History Source: Patient and Family (Daughter Stone at bedside)
A 12 point ROS was completed and negative except as noted: Yes
Constitutional: Reports Fatigue; Denies Fever or Chills
EENT: Reports Runny Nose (Chronic rhinorrhea) and Other (Abrasion left parietal scalp, contusion right lower orbit); Denies Sore Throat
Respiratory: Reports Cough and Trouble Breathing (Pain on breathing right anterior chest)
Cardiac: Reports Chest Pain (Right breast pain area of fall) and Syncope (Vasovagal during bowel movement); Denies Palpitations
Abdomen/GI: Reports Nausea, Vomiting (X 2) and Diarrhea (Watery x 1); Denies Abdominal Pain, Constipated, Bloody Stools or Black Stools
: Denies Dysuria, Frequency, Flank Pain, Incontinence, Difficulty Voiding or Urgency
Musculoskeletal: Denies Joint Pain or Edema
Skin: Denies Itching or Rash
Neurological: Reports Dizzy and Weakness; Denies Headache
Endocrine: Reports No Symptoms
Hematologic/Lymphatic: Reports No Symptoms
Psych: Reports Calm
Physical Exam
Vital Signs
Vital Signs
Pulse Resp BP Pulse Ox
82 23 90/51 93
11/29/24 13:00 11/29/24 13:00 11/29/24 13:00 11/29/24 14:04
Physical Exam
General: Comfortable, Conversant and Pain; No Fever or Chills
HEENT: NormoCephalic, Anicteric, Moist mucous membranes, PERRLA, [place] Conjunctivae, No Ptosis, Neck Nontender, Oxygen (Mid flow oxygen) and Other (Abrasion left parietal scalp, contusion right lower orbit)
Respiratory: Rhonchi (Bilaterally throughout both lung mae); No Wheezes or Rales
Cardiac: S1/S2 and Regular Rhythm; No Murmur, Rub, Gallop or Peripheral Edema
Breast: Deferred by me
GI: Soft, Non Tender, Non Distended, Normal Bowel Sounds and No Hepatosplenomegaly
Rectal: Deferred by Provider
Genito-urinary: Deferred by me
Musculoskeletal: No Clubbing, No Cyanosis and No Edema
Skin: Warm and Dry; No Rash or Jaundice
Neuro: AO x 3, No Motor Deficits (While in bed), Nonfocal/grossly intact and No Sensory Deficits; No Slurred Speech, Facial Droop, Tremors or Sedated
Psych: Calm
Laboratory Results
-
11/29/24 13:34
11/29/24 13:34
Laboratory Results
PT 13.9 Sec (11.4-14.6) 11/29/24 13:34
INR 1.04 11/29/24 13:34
APTT 25.6 Sec (23.4-35.0) 11/29/24 13:34
Total Bilirubin 2.8 mg/dl (0.2-1.3) H 11/29/24 13:34
AST 19 U/L (17-59) 11/29/24 13:34
ALT 14 U/L (0-50) 11/29/24 13:34
Alkaline Phosphatase 78 U/L (38-126) 11/29/24 13:34
Troponin I 0.013 ng/ml 11/29/24 13:34
Data Reviewed
-
Diagnostic Radiology: Report Reviewed by me
CT Scan: Report Reviewed by me
Lab Data: Labs Reviewed by me
Impression/Plan
-
Impression/plan:
Admit to IMU
#Acute hypoxic respiratory failure secondary to RIGHT LUNG PNA concerning for Aspiration given syncope and vomiting
#Sepsis/bandemia secondary to right lung PNA
WBC 4.5, bands 39%
88% 6 L now requiring mid flow 8 L nasal cannula O2 sat 93%
-Sputum culture
-Blood cultures x 2
-IV Vancomycin, IV Cefepime, IV Zosyn given in ER
-Continue IV Zosyn, IV vancomycin likely aspiration PNA
-Incentive spirometry
-Speech swallow eval
CT chest without IV contrast:
1. Large amount of new consolidation throughout the right lung as above, most likely related to pneumonia.
2. Very small right pleural effusion.
3. Unchanged biapical scarring some associated calcification as seen on previous examination.
4. Cholelithiasis.
5. Hepatic cysts and probable cysts without suspicious features.
#Acute hypotension 2/2 sepsis/dehydration
#Benign HTN
BP 80/45 given 2 L NSS BP 98/51
-Continue IV NSS 100 cc/h
-Start Levophed as patient is not maintaining MAP greater than 65
-Lactic acid
-Hold losartan 100 mg daily, tamsulosin 0.4 milligrams every afternoon
#GRETA secondary to dehydration/vomiting/alcohol use
Creat 2.3 prior baseline 0.9 02/12/2024
IV NSS 2 L bolus given
-IV NSS 100 cc/h
-Follow BMP
#Recent acute Alcohol intoxication
-Drinking last night 11/28/2024
-Check alcohol level
-MSAs screen with protocol
-IV thiamine, IV folate
#Permanent pacemaker-SSS 2010 [facility]
obtain old records from [place] [facility]
#Syncope vasovagal while on toilet
-1 episode of explosive diarrhea
-Check orthostatic vitals when blood pressure stable
-Fall precautions
-Consult PT/OT
CT head: 1. No acute intracranial abnormality
2. Small foci of decreased attenuation superior right parietal lobe question small chronic infarcts
#Right rib contusion from fall
-Right orbit contusion from fall
#Left parietal scalp abrasion
-Tylenol as needed
-Ice as needed
-Lidoderm patch right anterior chest below breast
-Wash abrasion with soap and water pat dry apply Band-Aid daily
CT findings question- Right parietal lobe question small chronic infarcts
#Chronic COPD-no acute exacerbation
#History of bronchospastic COPD flare
-Continue Spiriva, albuterol
#GERD
-Continue omeprazole 40 mg daily
#Hypothyroidism
Check TSH with free T4 reflex
-Continue levothyroxine 100 mcg p.o. daily
#HLD
-Continue atorvastatin 40 mg
# Left carotid stenosis
-S/p right carotid stent 03/15/[address] [place] [id number] [facility]
-Continue aspirin 81 mg daily, atorvastatin 40 mg every afternoon hold losartan due to hypotension
#Depression/anxiety/PTSD
-Continue Cymbalta 60 mg daily
#BPH
-Bladder scan with protocol
-Hold tamsulosin due to hypotension
#Prostate cancer history of radiation currently stable follows with urology at [place]
#Left neck CA removal 20 years ago status post chemo and radiation
#Active cigar smoker
-Cessation advised
DVT prophylaxis
Subcu Heparin
Limited DNR once ventilator if respiratory status declines however if cardiac arrest once no CPR no intubation
[2024-11-29] MEDS: SUBLIMAZE 50 MCG IV (15:55)
[2024-11-29] MEDS: ZOSYN 100 IV (15:55)
[2024-11-29] MEDS: LIDOCAINE 4% PATCH 1 PATCH TOPICAL (16:06)
--- NOTE | 2024-11-29 16:12 | W.PN.UPDATE ---
Update Note
Progress Note Update
This is an addendum to the H&P written by Lisy Gandara on 11/29/2024. Patient seen and examined independently with RUBBER GOODS REPAIRER.
79-year-old male past medical history of aspiration pneumonia, CAD with possible stent, bradycardia status post pacemaker, COPD, hyperlipidemia, hypertension, hypothyroidism, depression, BPH presenting with syncopal episode while having a bowel
movement. Fell forward striking his head and right side of the chest. Drinking alcohol yesterday with vomiting prior to syncope. Also with shortness of breath/cough.
Patient with blood pressure 80/45 initially. Hypoxemia requiring 6 L oxygen.
Labs show GRETA with creatinine of 2.3. White cell count of 4.5.
Chest x-ray shows new consolidation throughout the right mid and lower lung likely pneumonia. CT chest shows very large amount of new consolidation throughout the right lung related to pneumonia. CT head shows no acute abnormality.
Patient clinically septic secondary to pneumonia possibly aspiration pneumonia. Check influenza and COVID. Check sputum culture. IV fluids. Check blood cultures. Vancomycin/Zosyn.
Thiamine and folate. Alcohol withdrawal protocol.
[2024-11-29 16:27] LABS: COVID-19 Antigen Negative (Negative)
[2024-11-29] MEDS: LEVOPHED 250 IV (17:21)
--- NOTE | 2024-11-29 18:30 | PTCARENOTE ---
Pt brought from er on Levo 2 mcg at 7.5 ml /hr, AAOx3 R chest paionful at ribs, pt had cacked BM on his legs buttom and groin area. Pt on * midflow lungs are diminished. Pt is pleasant and cooperative . States he drinks a few beers on the weekend
--- NOTE | 2024-11-29 18:36 | PHA.VAN.IN ---
Assessment
- Assessment
Renal Function: Appears elevated from baseline (1)
Concomitant Antimicrobials: piperacillin/tazobactam
Plan
- Plan
Initial / Loading Dose: vanc 2000mg
Maintenance Regimen: dosing by level
Monitoring: random level 11/30 0600
MRSA Screen: Ordered per protocol
Pharmacokinetics Vancomycin I
- -
Patient Age: 79
Patient Sex: Male
Vancomycin Day #: 1
Indication: Pulmonary/Respiratory
Requesting Provider: Lisy Gandara
Pertinent Antimicrobial Allergies:
no pertinent antimicrobial allergies
Height / Weight:
Height 5 ft 8 in
Actual Weight 71 kg
Pertinent Past Medical History: COPD
- Vital Signs / Lab Results
Temp Pulse Resp BP Pulse Ox
98.5 F 80 22 110/66 95
11/29/24 18:32 11/29/24 18:15 11/29/24 18:15 11/29/24 18:05 11/29/24 17:46
Lab Results - Hematology
11/29/24
13:34
WBC 4.5 L
Band Neutrophils 39 H
Lab Results - Chemistry
11/29/24
13:34
BUN 22 H
Creatinine 2.3 H
Albumin 3.7
11/29/24
16:02
Lactic Acid 2.0
Microbiology Results
11/29/24 16:02 Influenza Types A & B (JIE) - Final
Nasal Swab Negative for Influenza A & B, NAAT
Negative results must be combined with clinical observations
and patient history.
Nucleic Acid Amplification test (NAAT)performed on the
ViS platform.
[2024-11-29 20:02] LABS: Magnesium 1.8 mg/dl (1.6-2.3); Phosphorus 3.4 mg/dl (2.5-4.5)
[2024-11-29] MEDS: VENTOLIN NEBULES 2.5 MG INH (20:31)
[2024-11-29] MEDS: ADVAIR HFA 115/21 MCG INHALER 2 PUFF INH (20:31)
[2024-11-29] MEDS: VANCOCIN 540 MG IV (20:38)
[2024-11-29] MEDS: THIAMINE INJECTION 200 MG IV (20:43)
[2024-11-29] MEDS: OCEAN, SALINE MIST NASAL (20:44)
[2024-11-29] MEDS: HEPARIN 5000 UNITS SC (20:44)
[2024-11-29 20:57] LABS: Alcohol None Detected
[2024-11-29 21:07] LABS: TSH Reflex To Free T4 0.69 uIU/ml (0.47-4.68)
[2024-11-29 21:25] LABS: GGTP 13 U/L (15-73)
[2024-11-29] MEDS: ZOSYN 50 IV (22:56)
[2024-11-30] VITALS (16 sets, daily range): BP systolic 87–124; BP diastolic 51–88; PULSE 74–76; O2SAT 97–98; BMI 24.2
--- NOTE | 2024-11-30 04:39 | PTCARENOTE ---
Addendum entered by Carri Li RN 11/30/24 08:07:
Pt had complaint of chest pain, ekg done. Pt then saying it was rib pain, prn morphine given.
Original Note:
Received pt from off going jose [facility]. Walking rounds Pt appears comfortable. Pt had no complaints at this time. Respirations even unlabored, spo2 98% 8L midflow.
[2024-11-30] MEDS: ZOSYN 50 IV ×4 (05:11→23:05)
[2024-11-30] MEDS: SYNTHROID 100 MCG PO (05:12)
[2024-11-30] MEDS: NSS 1000 IV ×2 (05:15→16:53)
[2024-11-30] MEDS: MORPHINE SULFATE 2 MG IV ×2 (05:16→20:07)
[2024-11-30 07:18] LABS: Hematocrit 34.2 % (39.0-52.0); Hemoglobin 11.5 g/dL (13.0-18.0); Mean Corp Hgb Conc. 33.6 g/dL (33.0-37.0); Mean Corpuscular Hgb 28.3 pg (27.0-31.0); Mean Corpuscular Volume 84.2 fL (80.0-94.0); Red Blood Cell Count 4.06 10^6/uL (4.70-6.10); Red Cell Dist. Width 14.6 % (11.5-14.5); White Blood Cell Count 10.5 10^3/uL (4.8-10.8)
[2024-11-30] MEDS: SPIRIVA RESPIMAT 2.5 MCG 2 PUFF INH (07:48)
[2024-11-30] MEDS: VENTOLIN NEBULES 2.5 MG INH ×3 (07:49→20:00)
[2024-11-30] MEDS: ADVAIR HFA 115/21 MCG INHALER 2 PUFF INH ×2 (07:49→20:00)
[2024-11-30 07:50] LABS: ALT (SGPT) 11 U/L (0-50); AST (SGOT) 18 U/L (17-59); Albumin 2.8 g/dl (3.5-5.0); Alkaline Phosphatase 50 U/L (38-126); Blood Urea Nitrogen 34 mg/dl (9-20); Calcium 7.3 mg/dl (8.4-10.2); Carbon Dioxide 18 mmol/L (22-30); Chloride 107 mmol/L (98-107); Estimated Creatinine Clearance 25 ml/min; Glucose 86 mg/dl (70-99); Potassium 4.8 mmol/L (3.5-5.1); Sodium 136 mmol/L (135-145); Total Protein 4.5 g/dl (6.3-8.2); eGFR 27.11
[2024-11-30] MEDS: FOLVITE 1 MG PO (08:17)
[2024-11-30] MEDS: ASPIR LOW (ENTERIC COATED) 81 MG PO (08:17)
[2024-11-30] MEDS: CYMBALTA DELAYED RELEASE 60 MG PO (08:17)
[2024-11-30] MEDS: PROTONIX 40 MG PO (08:18)
[2024-11-30] MEDS: HEPARIN 5000 UNITS SC ×2 (08:18→20:06)
[2024-11-30] MEDS: OCEAN, SALINE MIST 2 SPRAYS NASAL ×2 (08:18→20:06)
[2024-11-30] MEDS: LIDOCAINE 4% PATCH 1 PATCH TOPICAL (08:18)
[2024-11-30] MEDS: THIAMINE INJECTION 200 MG IV ×2 (08:18→20:07)
[2024-11-30 08:33] LABS: Vancomycin Random 17.7 ug/ml
[2024-11-30 08:55] LABS: Mean Platelet Volume 10.1 fL (7.4-10.4); Platelet Count 153 10^3/uL (130-400)
[2024-11-30 08:56] LABS: Absolute Neutrophils -Man Diff 9.1 10^3/uL (1.4-6.5); Band Neutrophils 30 % (0-3); Lymphocytes 6 % (20-51); Monocytes 5 % (2-9); Normal RBC Morphology Yes; Platelets Checked Yes; Segmented Neutrophils 57 % (42-75); Total Cells Counted 100
--- NOTE | 2024-11-30 09:00 | PTOTSP ---
Speech Language Pathology
Pt seen for clinical bedside swallow evaluation. Per daughter, pt with hx of aspiration PNA. Per chart review, this was in January 2024 and was post vomiting episode as well. P.O. trials of puree, regular solids, and thin liquids provided.
Baseline RR in high 20s to low 30s. Reported increased WOB with P.O. intake with RR into mid to high 30s at times. Slightly prolonged mastication noted. No overt coughing. Unable to rule out silent aspiration bedside.
Although pt does have risk factors for aspiration, including silent aspiration, especially hx of 'L neck CA' with surgery/chemo/XRT, aspiration PNA only noted currently and once prior, both post vomiting episodes. Would hold on instrumental
swallowing assessment for this reason, but will consider as needed. Recommend softer solids given respiratory status.
Recommend:
(1) IDDSI Level 6 (soft/bite-sized) and thin liquids
(2) Aspiration precautions: eat when Sp02 >90% and RR<30, slow rate, sit upright
(3) Meds as tolerated
(4) TRAILER PARK MANAGER to continue to follow
--- NOTE | 2024-11-30 09:03 | PTCARENOTE ---
Patient received from maintenance supervisor 2nd shift. Patient resting comfortably in bed. AAO, VSS. A-paced on tele. No events noted overnight. Complaints of pain mostly in right pectoral area, see MAR. Currently on 8L Midflow N/C, will attempt to wean as
tolerated. Fluids via IV. Speech to see patient. No testing scheduled at this time. Call jean in reach.
[2024-11-30 10:51] LABS: Vitamin D, 25-OH*** < 12.8 ng/mL (30-80)
--- NOTE | 2024-11-30 11:19 | W.PN.HOSP.TC ---
Today's Communication/Plan
-
Repeat blood cultures
Discontinue vancomycin
CT of the abdomen and pelvis
Continue pain control
Encourage incentive spirometry
Assessment / Plan
Assessment / Plan
With -paeh-rdm chest pain and syncope. Patient was drinking 8-10 beers. He normally drinks only on Friday he woke up feeling dizzy. Had vomiting and a syncopal episode. Patient also had diarrhea when he fell he hit the right side of
the chest
CT chest without contrast-large amount of consolidation throughout the Right Lung, Small right pleural effusion, Unchanged biapical scarring, Cholelithiasis, Hepatic cysts.
CT Head- No acute intracranial abnormality.Small foci of decreased attenuation superior right parietal lobe question small chronic infarcts.
Patient is awake and alert oriented
Cardiovascular system S1-S2 appreciated
Right chest wall tenderness
Abdomen soft and nontender
No pedal edema
Neuroexam is nonfocal
# Acute hypoxic respiratory failure possible aspiration Pneumonia secondary to vomiting and syncope
Sepsis secondary to above
Blood cultures with gram-negative bacilli
6 -8 L of oxygen
Sputum culture
IV Zosyn. DC Vanco
Speech evaluation appreciated IDDSI 6 diet
Incentive spirometry
ID eval.
# Septic shock versus combination of septic shock and hypovolemic shock
IV fluids
Pressors -off this morning
# Lactic acidosis-Resolved.
# Acute kidney injury-likely secondary to hypotension prerenal state-
continue IV fluids
Hold losartan
Bladder scan
Check urinalysis urine sodium
CT A/P with out contrast
# Syncope was likely vasovagal versus hypovolemic from vomiting
# Right chest wall contusion , Right scalp area contusion/abrasion-from fall-trauma
Icing, lidocaine patch
# History of hypertension-on losartan as outpatient-hold
# Hypothyroidism-continue Synthroid
# Hyperlipidemia-continue statin
# Prostate cancer with radiation 2021-continue Flomax. Follows with [facility]
# Recent alcohol intoxication last drink was 11/28/2024
Watch for withdrawal
Thiamine
# Cardiomyopathy with ejection fraction 40%-followed by [facility] cardiology Dr. Meyers
# Permanent pacemaker placement 2018 at [facility]
# COPD-on Spiriva and Wixela inhalers as outpatient-continue equal and and as needed albuterol
# History of left carotid stenosis status post right carotid stent 03/15/2014 Dr. Garcia [facility]-continue Aspirin and Statin
# Depression/anxiety/PTSD-continue Cymbalta
# Left-sided head and neck cancer 20 years ago with radiation 2000
# Hypoalbuminemia
# Vit D Def- Replace
# Active Cigar Smoker-Cessation counseling
# DVT prophylaxis-subcutaneous heparin
# CODE STATUS-Limited DNR-no CPR
D/W RN at bed side
Spoke to daughter and updated.
Time spent over 50 minutes
Anticipated Discharge: 24 - 48 hours
Subjective/Interval History
-
Date of Service: November 30, 2024
Objective Data
-
Labs:
Laboratory Results
11/30/24
07:00
WBC 10.5
Hgb 11.5 L
Hct 34.2 L
Plt Count 153 D
Sodium 136
Potassium 4.8
Chloride 107
Carbon Dioxide 18 L
BUN 34 H
Creatinine 2.4 H
Glucose 86
Calcium 7.3 L D
Total Bilirubin 2.0 H
AST 18
ALT 11
Alkaline Phosphatase 50
Vital Signs:
Vital Signs
Temp Pulse Resp BP Pulse Ox
98.2 F 70 27 96/57 98
11/30/24 07:52 11/30/24 11:06 11/30/24 11:06 11/30/24 06:00 11/30/24 11:06
I&O
11/29/24 11/30/24 12/01/24
06:59 06:59 06:59
Intake Total 1590 / 1590
Output Total 400 / 400
Balance 1190 / 1190
[2024-11-30 11:53] LABS: Magnesium 1.6 mg/dl (1.6-2.3)
[2024-11-30] MEDS: DRISDOL (VITAMIN D2) 50000 UNITS PO (13:02)
[2024-11-30] MEDS: MORPHINE SULFATE 4 MG IV (15:22)
--- NOTE | 2024-11-30 16:09 | CON.ID ---
Consultation
-
Date/Time Consultation Requested: 11/30/24 11:11
Date/Time Consultation Performed: 11/30/24 12: 35
Requesting Provider: Dr Aguirre
Performing Provider: Dr Hobson
Reason for Consultation: Positive BC
Chief Complaint / Past History
Chief Complaint
syncope
History of Present Illness
Mr Colon is a 79 year old male with history of COPD (not on home O2), aspiration, left neck CA 20 years ago status post radiation/chemo/surgery in remission, EtOH abuse who presented here post syncope on 11/29. He woke up feeling dizzy, had a single
episode of 'explosive' diarrhea, fainted, woke up on the floor with L parietal scalp tenderness and tenderness over the right pectoral region. He complained of shortness of breath with a cough, right chest pain in the area of contusion. He denied
headache, neck pain, back pain, fever, chills, abdominal pain, diarrhea, urinary symptoms.
Since arrival here he has been afebrile, bp initially hypotensive now overall stable, HR normal, requiring 6L of O2, wbc initially 4.5 now 10.5, hgb 11.5, plt 153, bandemia noted on arrival and improved today, cr baseline 0.9, cr initially 2.3 now
2.4, lactic acid 2.0, covid ag negative, CT chest: Large amount of new consolidation throughout the right lung, most likely related to pneumonia. CT head nonrevealing, currently on zosyn, blood culture 1 of 2 sets with GNR in the anaerobic bottle
- probable ESBL K pneumoniae
Past History
Additional Past Medical History:
COPD, bronchospastic COPD, Hx aspiration pneumonia per family, right carotid stenosis status post stents February 2014 [place], permanent pacemaker 2010 [facility], hypertension, hypothyroidism, GERD, depression, anxiety, PTSD, BPH, prostate cancer status
post radiation, left neck CA removal 20 years ago status post radiation/chemo, cigar smoker daily, chronic nasal polyps with chronic rhinorrhea
Allergy History:
No Known Allergies Allergy (Verified 11/29/24 12:39)
Review of Systems
Vital Signs
Temp Pulse Resp BP Pulse Ox
97.6 F 70 27 96/57 98
11/30/24 11:05 11/30/24 11:06 11/30/24 11:06 11/30/24 06:00 11/30/24 11:06
Physical Exam
Lab / Diagnostic Study Results
11/30/24 07:00
11/30/24 07:00
Total Counted 100 11/30/24 07:00
Abs Neuts (Manual) 9.1 10^3/uL (1.4-6.5) H 11/30/24 07:00
Segmented Neutrophils 57 % (42-75) 11/30/24 07:00
Band Neutrophils 30 % (0-3) H D 11/30/24 07:00
Lymphocytes (Manual) 6 % (20-51) L 11/30/24 07:00
PT 13.9 Sec (11.4-14.6) 11/29/24 13:34
INR 1.04 11/29/24 13:34
Lactic Acid 2.0 mmol/L (0.7-2.0) 11/29/24 16:02
Microbiology Results
Micro:
11/29/24 15:05 Blood Culture - Preliminary
Blood/Venous No Growth in 24 hours- Final report to follow
11/30/24 13:50 Blood Culture - Pending
Blood/Venous
11/30/24 14:34 Blood Culture - Pending
Blood/Venous
11/29/24 15:05 Blood Culture - Preliminary
Blood/Venous Klebsiella pneumoniae-ESBL
Gram Stain - Preliminary
11/30/24 10:07 MRSA Screen - Pending
Nose
11/30/24 07:00 Nasal Screen MRSA (PCR) - Final
Nose MRSA not detected - performed by PCR methodology.
11/29/24 16:02 Influenza Types A & B (JIE) - Final
Nasal Swab Negative for Influenza A & B, NAAT
Negative results must be combined with clinical observations
and patient history.
Nucleic Acid Amplification test (NAAT)performed on the
[employer] platform.
Assessment / Plan
RUL and RML Pneumonia - likely aspiration
COPD
Probable ESBL K Pneumoniae bacteremia
- source of bacteremia likely pulmonary
- repeat blood cultures x2 in progress
- continue with zosyn dose increased for ESBL infection
- had bedside swallow evaluation
[2024-11-30] MEDS: VENTOLIN NEBULES INH (16:21)
[2024-11-30 16:31] LABS: Vitamin B12 240 pg/ml (239-931)
[2024-11-30] MEDS: ZOSYN IV (16:55)
[2024-11-30 17:54] LABS: Urine Albumin 2+ (Neg - Trace); Urine Bilirubin Negative (Negative); Urine Character Slightly Cloudy (Clear); Urine Color Yellow; Urine Glucose Negative (Negative); Urine Ketone Negative (Negative); Urine Leukocyte Negative (Negative); Urine Nitrite Negative (Negative); Urine Occult Blood 1+ (Negative); Urine Urobilinogen Negative (Neg - 1+)
[2024-11-30 18:00] LABS: Amphetamines Negative (Negative); Barbiturates Negative (Negative); Benzodiazepines Negative (Negative); Buprenorphine Negative (Negative); Cocaine Negative (Negative); Marijuana Negative (Negative); Methadone Negative (Negative); Methamphetamines Negative (Negative); Opiates Positive (Negative); Phencyclidine Negative (Negative); Tricyclic Antidepressants Negative (Negative)
[2024-11-30 18:02] LABS: Urine Sodium 53 mmol/L (30-90)
[2024-11-30] MEDS: FLOMAX 0.4 MG PO (18:15)
[2024-11-30] MEDS: LIPITOR 40 MG PO (18:15)
[2024-11-30 18:41] LABS: Fentanyl, Urine Positive (Negative)
[2024-11-30 19:04] LABS: Urine Squamous Cell 0-2 /LPF (Few)
[2024-11-30 19:05] LABS: Urine Bacteria Many (Negative); Urine Red Blood Cell 0-2 /HPF (0-2); Urine White Cell 26-30 /HPF (0-5)
[2024-11-30] MEDS: OSCAL 500 + D 500 MG PO (20:07)
--- NOTE | 2024-11-30 20:54 | PTCARENOTE ---
cannot verify vitals captured before 1900.
--- NOTE | 2024-11-30 23:24 | PTCARENOTE ---
assumed care of patient. pt is AAOx3, flat affect. pt able to make needs known. reports pain to right chest from falling at home. medicated with PRN morphine per MAR. on 4L 98%. BP little soft, will monitor. productive cough noted. care ongoing.
[2024-12-01] VITALS (12 sets, daily range): BP systolic 91–123; BP diastolic 53–67; PULSE 80; O2SAT 88–96; BMI 24.9
[2024-12-01] MEDS: NSS 1000 IV (01:15)
[2024-12-01] MEDS: SYNTHROID 100 MCG PO (05:45)
[2024-12-01] MEDS: ZOSYN 50 IV (05:45)
[2024-12-01 06:14] LABS: Hematocrit 31.3 % (39.0-52.0); Hemoglobin 10.6 g/dL (13.0-18.0); Mean Corp Hgb Conc. 33.9 g/dL (33.0-37.0); Mean Corpuscular Hgb 28.5 pg (27.0-31.0); Mean Corpuscular Volume 84.1 fL (80.0-94.0); Mean Platelet Volume 10.1 fL (7.4-10.4); Platelet Count 136 10^3/uL (130-400); Red Blood Cell Count 3.72 10^6/uL (4.70-6.10); Red Cell Dist. Width 14.8 % (11.5-14.5); White Blood Cell Count 7.9 10^3/uL (4.8-10.8)
[2024-12-01 06:48] LABS: Blood Urea Nitrogen 37 mg/dl (9-20); Calcium 7.4 mg/dl (8.4-10.2); Carbon Dioxide 18 mmol/L (22-30); Chloride 109 mmol/L (98-107); Estimated Creatinine Clearance 43 ml/min; Glucose 108 mg/dl (70-99); Potassium 4.3 mmol/L (3.5-5.1); Sodium 134 mmol/L (135-145); eGFR 51.77
[2024-12-01] MEDS: VENTOLIN NEBULES 2.5 MG INH ×4 (07:31→19:37)
[2024-12-01] MEDS: SPIRIVA RESPIMAT 2.5 MCG 2 PUFF INH (07:31)
[2024-12-01] MEDS: ADVAIR HFA 115/21 MCG INHALER 2 PUFF INH ×2 (07:31→19:37)
[2024-12-01 08:05] LABS: % Basophils 0.4 % (0-2); % Eosinophils 3.5 % (0-6); % Immature Granulocytes 9.6 % (0-0.5); % Monocytes 4.4 % (1.7-9.3); % Neutrophils 77.1 % (42.2-75.2); Absolute Eosinophils 0.3 10^3/uL (0-0.7); Absolute Immature Granulocytes 0.8 10^3/uL (0-0.05); Absolute Lymphocytes 0.4 10^3/uL (1.2-3.4); Absolute Monocytes 0.4 10^3/uL (0.1-0.6); Absolute Neutrophils 6.1 10^3/uL (1.4-6.5); Nucleated Red Blood Cells % 0 % (-)
[2024-12-01] MEDS: MORPHINE SULFATE 2 MG IV ×2 (08:21→12:52)
[2024-12-01] MEDS: HEPARIN 5000 UNITS SC ×2 (08:22→20:22)
[2024-12-01] MEDS: ASPIR LOW (ENTERIC COATED) 81 MG PO (08:23)
[2024-12-01] MEDS: CYMBALTA DELAYED RELEASE 60 MG PO (08:24)
[2024-12-01] MEDS: THIAMINE INJECTION 200 MG IV ×2 (08:24→20:23)
[2024-12-01] MEDS: FOLVITE 1 MG PO (08:24)
[2024-12-01] MEDS: OSCAL 500 + D 500 MG PO ×2 (08:25→20:23)
[2024-12-01] MEDS: LIDOCAINE 4% PATCH 1 PATCH TOPICAL (08:25)
[2024-12-01] MEDS: PROTONIX 40 MG PO (08:25)
[2024-12-01] MEDS: OCEAN, SALINE MIST 2 SPRAYS NASAL ×2 (08:25→20:24)
--- NOTE | 2024-12-01 09:00 | PTOTSP ---
Speech Language Pathology
Pt seen for dysphagia tx. Messaged received from RN 11/30 PM that pt was complaining of difficulty swallowing and preferred pureed textures. Diet downgraded to puree/thins by MD per pt preference.
This date, improved respiratory status noted. Pt denied any dysphagia PIGMENT PRESSER during evaluation on 11/30. However, this date, stated that since his neck CA, he has difficulty with harder meats. He stated these will 'stick,' localizing to mid-chest.
Seen with P.O. trials of puree and thin liquids. He declined regular solids this date. No oral or overt pharyngeal difficulty noted with trials provided. Pt stated he prefers to stay on pureed solids at this time given his respiratory status.
Given reports now of some difficulty swallowing since neck CA, instrumental swallow assessment recommended.
Recommend:
(1) VSE 12/02
(2) IDDSI Level 4 (Puree) and thin liquids per pt preference
(3) General aspiration and esophageal precautions
(4) Meds as tolerated
(5) NEWSROOM INTERN to continue to follow
--- NOTE | 2024-12-01 10:07 | W.PN.ID1 ---
Date of Service
Date of Service: December 01, 2024
Today's Communication
- continue with zosyn dose increased for ESBL infection with improved renal function
Assessment / Plan
RUL and RML Pneumonia - likely aspiration
COPD
Probable ESBL K Pneumoniae bacteremia
GRETA - improving
Pacemaker
- source of bacteremia likely pulmonary
- repeat blood cultures x2 in progress - source pulmonary
- continue with zosyn dose increased for ESBL infection with improved renal function
- had bedside swallow evaluation
Chief Complaint
-: Pneumonia (likely aspiration)
Subjective / Review of Systems
afebrile
bp stable this AM, was mildly low overnight
now on 2L NC
poor appetite
complains of right sided chest pain, not with swallowing and no pain in the mouth
Vital Signs / Physical Exam
Vital Signs
Vital Signs
Temp Pulse Resp BP Pulse Ox
98.1 F 64 18 108/59 95
12/01/24 07:20 12/01/24 07:33 12/01/24 07:33 12/01/24 06:00 12/01/24 08:11
Physical Exam
Constitutional: No Acute Distress and Chronically Ill
Oropharyngeal: Negative Thrush
Cardiovascular: Regular Rate and S1/S2; Negative Murmur or Rub
Pulmonary: Clear and Symmetric; Negative Wheezes or Rales
Gastrointestinal: Soft, Non Tender, Non Distended and Normal Bowel Sounds
Skin: Warm and Dry; Negative Rash or Jaundice
Objective Data
Lab Data
Lab Results
12/01/24 05:58
12/01/24 05:58
PT 13.9 Sec (11.4-14.6) 11/29/24 13:34
INR 1.04 11/29/24 13:34
APTT 25.6 Sec (23.4-35.0) 11/29/24 13:34
Estimated Creat Clear 43 ml/min 12/01/24 05:58
Lactic Acid 2.0 mmol/L (0.7-2.0) 11/29/24 16:02
Total Bilirubin 2.0 mg/dl (0.2-1.3) H 11/30/24 07:00
GGT Cancelled 11/29/24 17:59
AST 18 U/L (17-59) 11/30/24 07:00
ALT 11 U/L (0-50) 11/30/24 07:00
Alkaline Phosphatase 50 U/L (38-126) 11/30/24 07:00
Most recent labs reviewed.
CT Scan: Image Reviewed and Report Reviewed
Micro Results:
11/30/24 17:32 Urine Culture - Pending
Urine
11/29/24 15:05 Blood Culture - Preliminary
Blood/Venous No Growth in 24 hours- Final report to follow
11/30/24 13:50 Blood Culture - Pending
Blood/Venous
11/30/24 14:34 Blood Culture - Pending
Blood/Venous
11/29/24 15:05 Blood Culture - Preliminary
Blood/Venous Klebsiella pneumoniae-ESBL
Gram Stain - Preliminary
11/30/24 10:07 MRSA Screen - Pending
Nose
11/30/24 07:00 Nasal Screen MRSA (PCR) - Final
Nose MRSA not detected - performed by PCR methodology.
11/29/24 16:02 Influenza Types A & B (JIE) - Final
Nasal Swab Negative for Influenza A & B, NAAT
Negative results must be combined with clinical observations
and patient history.
Nucleic Acid Amplification test (NAAT)performed on the
[employer] platform.
--- NOTE | 2024-12-01 10:16 | CM ---
Addendum entered by Carolin Grubbs 12/01/24 10:32:
desk manager received a consult for alcohol use and call placed to [facility] to offer patient support and options.
Original Note:
desk manager reviewed patient's chart and spoke with patient's daughter, Renetta by phone. desk manager spoke with patient's daughter a few days ago as patient's spouse is a patient on the 4th floor.
Patient lives with spouse, daughter and son in law in a 2 story home, with ramp to enter, then 2 steps, with a chair lift to the 2nd floor. Patient is independent with adl's and ambulation, no dme, patient was taking care of his spouse prior to
admission.
PCP: Andrew Howell, Paige TAPIA
Pharmacy: [facility].
Plan; Home with family when stable.
[2024-12-01] MEDS: ZOSYN 100 IV ×2 (11:18→17:37)
--- NOTE | 2024-12-01 12:42 | W.PN.HOSP.TC ---
Addendum entered and electronically signed by Jennifer Aguirre MD 12/01/24 13:02:
Left message for
Original Note:
Today's Communication/Plan
-
Zosyn
Await urine CX
OOB
OK for Tele
Get records from
Assessment / Plan
Assessment / Plan
With [id number] chest pain and syncope. Patient was drinking 8-10 beers. He normally drinks only on Friday he woke up feeling dizzy. Had vomiting and a syncopal episode. Patient also had diarrhea when he fell he hit the right side of
the chest
CT chest without contrast-large amount of consolidation throughout the Right Lung, Small right pleural effusion, Unchanged biapical scarring, Cholelithiasis, Hepatic cysts.
CT Head- No acute intracranial abnormality.Small foci of decreased attenuation superior right parietal lobe question small chronic infarcts.
Patient is awake and alert oriented
Cardiovascular system S1-S2 appreciated
Right chest wall tenderness
Abdomen soft and nontender
No pedal edema
Neuroexam is nonfocal
CT abdomen and pelvis-consolidations with surrounding groundglass opacities in the right lower and middle lobes with small right pleural effusion represent multifocal pneumonia. Cholelithiasis with no evidence of cholecystitis. Colonic
diverticulosis.
# Acute hypoxic respiratory failure possible aspiration Pneumonia secondary to vomiting and syncope
Sepsis secondary to above
ESBL Klebsiella in 1 set of blood cultures
Wean oxygen as tolerated
Sputum culture
IV Zosyn.
Speech evaluation appreciated IDDSI 6 diet however patient prefers pur�ed diet.
Video swallow tomorrow
Incentive spirometry to be encouraged
ID eval appreciated
# UDS - With Opiates and Fentanyl. Not sure if got them here , need to investigate.
# Septic shock versus combination of septic shock and hypovolemic shock
ESBL Klebsiella in 1 set of blood culture repeat cultures negative
Continue Zosyn
IV fluids
Pressors -off
# Lactic acidosis-Resolved.
# Acute kidney injury-likely secondary to hypotension prerenal state-
Creatinine improving
continue IV fluids
Hold losartan
Bladder scan
Urinalysis noted. Urine cultures pending
CT A/P with out contrast with no obstruction
# NSVT-echo noted. Unclear why the patient is not on beta-isabelle
# Syncope was likely vasovagal versus hypovolemic from vomiting
# Right chest wall contusion , Right scalp area contusion/abrasion-from fall-trauma
Icing, lidocaine patch
# History of hypertension-on losartan as outpatient-hold
# Hypothyroidism-continue Synthroid
# Hyperlipidemia-continue statin
# Prostate cancer with radiation 2021-continue Flomax. Follows with [facility]
# Recent alcohol intoxication last drink was 11/28/2024
Watch for withdrawal
Thiamine
# Cardiomyopathy with ejection fraction 40%-followed by [facility] cardiology Dr. Meyers
Echo 11/30/2024-mildly reduced systolic function. EF 45%. Stage I diastolic dysfunction. Global hypokinesis.
# Permanent pacemaker placement 2017 at [facility]
# COPD-on Spiriva and Wixela inhalers as outpatient-continue equivalent and and as needed albuterol
# History of left carotid stenosis status post right carotid stent 03/15/2014 Dr. Garcia [facility]-continue Aspirin and Statin
# Depression/anxiety/PTSD-continue Cymbalta
# Left-sided head and neck cancer 20 years ago with radiation 2000
# Hypoalbuminemia
# Cholelithiasis
# Diverticulosis
# Vit D Def- Replace
# Active Cigar Smoker-Cessation counseling
# DVT prophylaxis-subcutaneous heparin
# CODE STATUS-Limited DNR-no CPR
D/W RN at bed side
Discussed with speech therapy
Time spent over 50 minutes
OK for Tele
D/W Daughter and discussed in detail.
Anticipated Discharge: > 48 hours
Subjective/Interval History
-
Date of Service: December 01, 2024
Objective Data
-
Labs:
Laboratory Results
12/01/24
05:58
WBC 7.9
Hgb 10.6 L
Hct 31.3 L
Plt Count 136
Sodium 134 L
Potassium 4.3
Chloride 109 H
Carbon Dioxide 18 L
BUN 37 H
Creatinine 1.4 H
Glucose 108 H
Calcium 7.4 L
Vital Signs:
Vital Signs
Temp Pulse Resp BP Pulse Ox
98.1 F 75 18 108/59 95
12/01/24 11:19 12/01/24 11:18 12/01/24 11:18 12/01/24 06:00 12/01/24 11:18
I&O
11/30/24 12/01/24 12/02/24
06:59 06:59 06:59
Intake Total 1590 / 1590 2710 / 2710
Output Total 400 / 400 500 / 500
Balance 1190 / 1190 2210 / 2210
[2024-12-01] MEDS: TYLENOL 650 MG PO (12:51)
[2024-12-01] MEDS: LIPITOR 40 MG PO (17:37)
[2024-12-01] MEDS: FLOMAX 0.4 MG PO (17:37)
--- NOTE | 2024-12-01 18:53 | PTCARENOTE ---
OOB all day, IVF completed- IV antibx as ordered. MSO4 given x2 this shift - the 2nd dose with Tylenol - Lido patch placed on shaved chest. Pt states pain still there but much improved through the day. Failed O2 weaning x3 today. RAIR checked
88%. On 2L NC 97%
[2024-12-01 21:45] LABS: Glucose - Point of Care 127 mg/dl (70-99)
--- NOTE | 2024-12-01 22:12 | PTCARENOTE ---
Patients became tachycardic for a few seconds while asleep, into the 150s, not sustained, returned to normal rate without intervention. bp 123/62. Patient denied any symptoms when awoken. Just an FYI as patient has not had any previous episodes of
tachycardia. This am Mag was 2.0, Calcium was 7.4. Provider notified.
[2024-12-02] VITALS (12 sets, daily range): BP systolic 117–152; BP diastolic 59–83; PULSE 69–74; O2SAT 87–97
[2024-12-02] MEDS: ZOSYN 100 IV ×4 (00:38→17:34)
[2024-12-02 04:18] LABS: Hematocrit 30.6 % (39.0-52.0); Hemoglobin 10.2 g/dL (13.0-18.0); Mean Corp Hgb Conc. 33.3 g/dL (33.0-37.0); Mean Corpuscular Hgb 27.8 pg (27.0-31.0); Mean Corpuscular Volume 83.4 fL (80.0-94.0); Mean Platelet Volume 10.1 fL (7.4-10.4); Platelet Count 116 10^3/uL (130-400); Red Blood Cell Count 3.67 10^6/uL (4.70-6.10); Red Cell Dist. Width 14.9 % (11.5-14.5); White Blood Cell Count 8.4 10^3/uL (4.8-10.8)
[2024-12-02 05:00] LABS: Blood Urea Nitrogen 28 mg/dl (9-20); Calcium 7.8 mg/dl (8.4-10.2); Carbon Dioxide 20 mmol/L (22-30); Chloride 105 mmol/L (98-107); Estimated Creatinine Clearance 54 ml/min; Glucose 97 mg/dl (70-99); Magnesium 2.1 mg/dl (1.6-2.3); Potassium 3.6 mmol/L (3.5-5.1); Sodium 135 mmol/L (135-145); eGFR > 60.00
[2024-12-02 05:06] LABS: % Basophils 0.5 % (0-2); % Eosinophils 2.8 % (0-6); % Immature Granulocytes 0.4 % (0-0.5); % Lymphocytes 4.3 % (20.5-51.1); % Monocytes 5.5 % (1.7-9.3); % Neutrophils 86.5 % (42.2-75.2); Absolute Eosinophils 0.2 10^3/uL (0-0.7); Absolute Lymphocytes 0.4 10^3/uL (1.2-3.4); Absolute Monocytes 0.5 10^3/uL (0.1-0.6); Absolute Neutrophils 7.3 10^3/uL (1.4-6.5); Nucleated Red Blood Cells % 0 % (-)
[2024-12-02] MEDS: SYNTHROID 100 MCG PO (05:19)
[2024-12-02] MEDS: ADVAIR HFA 115/21 MCG INHALER 2 PUFF INH ×2 (07:35→19:14)
[2024-12-02] MEDS: SPIRIVA RESPIMAT 2.5 MCG 2 PUFF INH (07:35)
[2024-12-02] MEDS: VENTOLIN NEBULES 2.5 MG INH ×4 (07:35→19:14)
[2024-12-02] MEDS: VITAMIN B-12 1000 MCG PO (08:06)
[2024-12-02] MEDS: CYMBALTA DELAYED RELEASE 60 MG PO (08:06)
[2024-12-02] MEDS: PROTONIX 40 MG PO (08:06)
[2024-12-02] MEDS: FOLVITE 1 MG PO (08:06)
[2024-12-02] MEDS: OSCAL 500 + D 500 MG PO ×2 (08:06→20:32)
[2024-12-02] MEDS: THIAMINE INJECTION 200 MG IV (08:06)
[2024-12-02] MEDS: TYLENOL 650 MG PO (08:06)
[2024-12-02] MEDS: ASPIR LOW (ENTERIC COATED) 81 MG PO (08:06)
[2024-12-02] MEDS: LIDOCAINE 4% PATCH 1 PATCH TOPICAL (08:07)
[2024-12-02] MEDS: HEPARIN 5000 UNITS SC ×2 (08:07→20:30)
[2024-12-02] MEDS: OCEAN, SALINE MIST 2 SPRAYS NASAL ×2 (08:07→20:33)
--- NOTE | 2024-12-02 09:17 | W.PN.ID1 ---
Date of Service
Date of Service: December 02, 2024
Today's Communication
- continue with zosyn dosed for ESBL infection day 3 of effective rx; anticipate eventual transition to oral doxycycline
Assessment / Plan
RUL and RML Pneumonia - likely aspiration
COPD
Probable ESBL K Pneumoniae bacteremia
GRETA - improving
Pacemaker
- source of bacteremia likely pulmonary
- repeat blood cultures x2 in progress no growth to date
- sputum culture if able to obtain
- continue with zosyn dosed for ESBL infection day 3 of effective rx; anticipate likely transition to oral doxycycline tomorrow, likely for a 7 day total course
- follow clinically
Chief Complaint
-: Pneumonia (likely aspiration)
Subjective / Review of Systems
afebrile
bp stable
now on 2L NC
no significant events overnight
Vital Signs / Physical Exam
Vital Signs
Vital Signs
Temp Pulse Resp BP Pulse Ox
98.9 F 74 20 131/65 97
12/01/24 23:39 12/02/24 07:38 12/02/24 07:38 12/02/24 04:46 12/02/24 08:33
Physical Exam
Constitutional: No Acute Distress and Chronically Ill
Cardiovascular: Regular Rate and S1/S2; Negative Murmur or Rub
Pulmonary: Clear and Symmetric; Negative Wheezes or Rales
Gastrointestinal: Soft, Non Tender, Non Distended and Normal Bowel Sounds
Skin: Warm and Dry; Negative Rash or Jaundice
Objective Data
Lab Data
Lab Results
12/02/24 04:02
12/02/24 04:02
PT 13.9 Sec (11.4-14.6) 11/29/24 13:34
INR 1.04 11/29/24 13:34
APTT 25.6 Sec (23.4-35.0) 11/29/24 13:34
Estimated Creat Clear 54 ml/min 12/02/24 04:02
Lactic Acid 2.0 mmol/L (0.7-2.0) 11/29/24 16:02
Total Bilirubin 2.0 mg/dl (0.2-1.3) H 11/30/24 07:00
GGT Cancelled 11/29/24 17:59
AST 18 U/L (17-59) 11/30/24 07:00
ALT 11 U/L (0-50) 11/30/24 07:00
Alkaline Phosphatase 50 U/L (38-126) 11/30/24 07:00
Most recent labs reviewed.
Organism 1 Klebsiella pneumoniae-ESBL
1. Klebsiella pneumoniae-ESBL
M.I.C. RX
--------- ---
Amoxicillin/Potas. Clavulanate >16/8 R
Ampicillin >16 R
Ampicillin/Sulbactam >16/8 R
Aztreonam >16 R
Cefazolin >16 R
Cefepime >16 R
Ceftazidime >16 R
Ceftriaxone >2 R
Ertapenem <=0.5 S
Ciprofloxacin >2 R
Gentamicin >8 R
Meropenem <=1 S
Piperacillin/Tazobactam <=8 S
Tetracycline <=4 S
Tobramycin >8 R
Trimethoprim/Sulfamethoxazole >2/38 R
Micro Results:
11/29/24 15:05 Blood Culture - Preliminary
Blood/Venous Klebsiella pneumoniae-ESBL
Gram Stain - Preliminary
11/29/24 15:05 Blood Culture - Preliminary
Blood/Venous No Growth in 48 hours- Final report to follow
11/30/24 10:07 MRSA Screen - Preliminary
Nose Culture in Progress
11/30/24 17:32 Urine Culture - Final
Urine NO GROWTH
11/30/24 14:34 Blood Culture - Preliminary
Blood/Venous No Growth in 24 hours- Final report to follow
11/30/24 13:50 Blood Culture - Preliminary
Blood/Venous No Growth in 24 hours- Final report to follow
11/30/24 07:00 Nasal Screen MRSA (PCR) - Final
Nose MRSA not detected - performed by PCR methodology.
11/29/24 16:02 Influenza Types A & B (JIE) - Final
Nasal Swab Negative for Influenza A & B, NAAT
Negative results must be combined with clinical observations
and patient history.
Nucleic Acid Amplification test (NAAT)performed on the
[employer] platform.
Care Review
Plan reviewed with: Physician (Dr Aguirre - antibiotics, dispo)
--- NOTE | 2024-12-02 10:47 | CM ---
Patient who had fall and syncopal episode at home with Dx PNA, possible aspiration PNA. O2 2L. Receiving IV Zosyn. PT recommends HH. OT recommends SNF. Dysphagia diet- VSE today.
Spoke with Ming ERIC; he met with the patient who said he usually drinks 6 beers on Friday by going to the [employer] club, and the 10 beers he drank on the day of the superbowl was an exception. He was given an outpatient flyer for resources that he
will probably not use.
Met with patient and spoke with daughter; both agree to d/c home with [facility], as patient's recently had service with them. Daughter works during the day as a health educator but is available to assist the patient as needed. The
patient is usually a caregiver for his however she is currently also a patient here at who will be going to a short term SNF at discharge.
Plan watch for home O2 needs.
Plan follow up referral to [facility].
Plan home probably with [facility], possibly with O2, with family.
--- NOTE | 2024-12-02 11:02 | W.PN.HOSP.TC ---
Addendum entered and electronically signed by Jennifer Aguirre MD 12/02/24 11:26:
Outpatient records reviewed limited records-
Past medical history
Prostate cancer history with 28 rounds of radiation
History of asthma
History of left neck cancer status post excision with chemo and radiation 2004
COPD
Coronary artery disease
Depression
GERD
Hyperlipidemia
Hypertension
Hypertensive heart disease
Lung nodules
Pacemaker
Atrial fibrillation
Ultrasound of the carotids 07/22/2024-less than 50% stenosis of the right ICA less than 50% stenosis of the left ICA
Addendum entered and electronically signed by Jennifer Aguirre MD 12/02/24 11:15:
Patient did receive fentanyl and morphine in the ER
Original Note:
Today's Communication/Plan
-
Wean oxygen as tolerated
Encourage incentive spirometry
Out of bed and ambulate
Continue antibiotics
This
VSE
Assessment / Plan
Assessment / Plan
With [id number] chest pain and syncope. Patient was drinking 8-10 beers. He normally drinks only on Friday he woke up feeling dizzy. Had vomiting and a syncopal episode. Patient also had diarrhea when he fell he hit the right side of
the chest
CT chest without contrast-large amount of consolidation throughout the Right Lung, Small right pleural effusion, Unchanged biapical scarring, Cholelithiasis, Hepatic cysts.
CT Head- No acute intracranial abnormality.Small foci of decreased attenuation superior right parietal lobe question small chronic infarcts.
Patient is awake and alert oriented
Cardiovascular system S1-S2 appreciated
Right chest wall tenderness
Abdomen soft and nontender
No pedal edema
Neuroexam is nonfocal
CT abdomen and pelvis-consolidations with surrounding groundglass opacities in the right lower and middle lobes with small right pleural effusion represent multifocal pneumonia. Cholelithiasis with no evidence of cholecystitis. Colonic
diverticulosis.
# Acute hypoxic respiratory failure possible aspiration Pneumonia secondary to vomiting and syncope
Sepsis secondary to above
ESBL Klebsiella in 1 set of blood cultures
Wean oxygen as tolerated
Sputum culture
IV Zosyn.
Speech evaluation appreciated IDDSI 6 diet however patient prefers pur�ed diet.
Video swallow today
Incentive spirometry to be encouraged
ID eval appreciated
# UDS - With Opiates and Fentanyl. Not sure if got them here , need to investigate.
# Septic shock versus combination of septic shock and hypovolemic shock
ESBL Klebsiella in 1 set of blood culture repeat cultures negative
Continue Zosyn
IV fluids
Pressors -off
# Lactic acidosis-Resolved.
# Acute kidney injury-likely secondary to hypotension prerenal state-
Creatinine improving
Hold losartan
Bladder scan
Urinalysis noted. Urine cultures pending
CT A/P with out contrast with no obstruction
# NSVT-echo noted. Unclear why the patient is not on beta-isabelle, spoke to Shannon from [place] cardiology office. She discussed with Dr. Ellison his academic specialist. Patient has a history of hypotension and that is why. Discussed that we are going to
start him on a low-dose of beta-isabelle.
# Syncope was likely vasovagal versus hypovolemic from vomiting
# Right chest wall contusion , Right scalp area contusion/abrasion-from fall-trauma
Icing, lidocaine patch
# History of hypertension-on losartan as outpatient-hold. While the patient is on beta-isabelle I will do a reduced dose of losartan which I also discussed with cardiology.
# Hypothyroidism-continue Synthroid
# Hyperlipidemia-continue statin
# Prostate cancer with radiation 2021-continue Flomax. Follows with [place] u[facility]
# Recent alcohol intoxication last drink was 11/28/2024
Watch for withdrawal
Thiamine
# Cardiomyopathy with ejection fraction 40%-followed by [place] cardiology Dr. Meyers
Echo 11/30/2024-mildly reduced systolic function. EF 45%. Stage I diastolic dysfunction. Global hypokinesis.
Discussed with Shannon who is a nurse practitioner. They will bring him in to be seen soon after discharge.
# Permanent pacemaker placement 2018 at [place]
# COPD-on Spiriva and Wixela inhalers as outpatient-continue equivalent and and as needed albuterol
# History of left carotid stenosis status post right carotid stent 03/15/2014 Dr. Garcia [facility]-continue Aspirin and Statin
# Depression/anxiety/PTSD-continue Cymbalta
# Left-sided head and neck cancer 20 years ago with radiation 2000
# Hypoalbuminemia
# Cholelithiasis
# Diverticulosis
# Vit D Def- Replace
# Active Cigar Smoker-Cessation counseling
# DVT prophylaxis-subcutaneous heparin
# CODE STATUS-Limited DNR-no CPR
D/W RN at bed side
D/W Shannon from [facility] cardiology
D/W Case management
D/W ID
Time spent over 50 minutes
Anticipated Discharge: 24 - 48 hours
Subjective/Interval History
-
Date of Service: December 02, 2024
Objective Data
-
Labs:
Laboratory Results
12/02/24
04:02
WBC 8.4
Hgb 10.2 L
Hct 30.6 L
Plt Count 116 L
Sodium 135
Potassium 3.6
Chloride 105
Carbon Dioxide 20 L
BUN 28 H
Creatinine 1.1
Glucose 97
Calcium 7.8 L
Vital Signs:
Vital Signs
Temp Pulse Resp BP Pulse Ox
98.3 F 80 24 124/59 97
12/02/24 07:05 12/02/24 08:10 12/02/24 08:10 12/02/24 08:10 12/02/24 08:33
I&O
12/01/24 12/02/24 12/03/24
06:59 06:59 06:59
Intake Total 2710 / 2710 800 / 800
Output Total 500 / 500 450 / 450 500 / 500
Balance 2210 / 2210 350 / 350 -500 / -500
[2024-12-02] MEDS: KCL 20 MEQ PO (11:40)
[2024-12-02] MEDS: LASIX 20 MG PO (11:40)
--- NOTE | 2024-12-02 13:15 | PTOTSP ---
Speech Language Pathology
VIDEOFLUOROSCOPIC SWALLOWING EXAMINATION (VSE) completed. Mild pharyngeal dysphagia noted with trace to mod-severe pharyngeal residue, most noteable in vallecula. Thin liquid wash provided post regular solids, which decreased residue from
mod-severe to trace amount. Supraglottic penetration (PAS 3) noted with consecutive sips of thin liquids via straw and mildly thick liquids via tsp. No other penetration or any aspiration noted. Cervical esophageal residue noted. Suspect current
swallow function is chronic given known hx of H&N CA with surgery and XRT.
Recommend:
(1) IDDSI Level 6 (soft/bite-sized) and thin liquids. Pt choosing IDDSI Level 4 (puree) at this time
(2) Aspiration precautions: frequent sips of liquids during meals, slow rate, sit upright
(3) Meds as tolerated
(4) Consider GI consult as an outpatient
(5) LABORATORY TECH to sign off as swallow is functional. Please reconsult as indicated.
[2024-12-02] MEDS: FLOMAX 0.4 MG PO (16:55)
[2024-12-02] MEDS: TOPROL XL 12.5 MG PO (16:55)
[2024-12-02] MEDS: LIPITOR 40 MG PO (16:55)
--- NOTE | 2024-12-02 17:32 | PTCARENOTE ---
Addendum entered by Jaimee Alegria RN 12/02/24 17:49:
Report called to [facility] transferred to [id number].
Original Note:
Failed wean off o2 this am-desated to 88% RR increased to 26-bibasilar crackles noted- d/w Dr. Aguirre- Lasix 20mg po given. This pm Tolerating Rair sao2 93%- RR 18- no dyspnea observed. SR/ A paced intermittently. Ambulated with PT in hallway
today. Pain right chest area controlled with Lido patch. Tylenol given x 1 early am.
[2024-12-02] MEDS: VITAMIN B1 100 MG PO (20:33)
[2024-12-03] VITALS (7 sets, daily range): BP systolic 132–151; BP diastolic 65–85; PULSE 80; O2SAT 94; BMI 24.5
[2024-12-03] MEDS: ZOSYN 100 IV ×2 (00:15→05:35)
[2024-12-03] MEDS: FLUSH (NSS) 2 FLUSH IV (00:15)
--- NOTE | 2024-12-03 03:18 | PTCARENOTE ---
At 20:25 Patient had a 20 beat run of V tach. He was asymptomatic BP 134/69 HR down to 79. TT to GUEST ADVISOR, covering house. Magnesium level added to am labs.
[2024-12-03] MEDS: SYNTHROID 100 MCG PO (05:35)
[2024-12-03] MEDS: ADVAIR HFA 115/21 MCG INHALER 2 PUFF INH ×2 (07:27→19:41)
[2024-12-03] MEDS: VENTOLIN NEBULES 2.5 MG INH ×4 (07:27→19:41)
[2024-12-03] MEDS: SPIRIVA RESPIMAT 2.5 MCG 2 PUFF INH (07:27)
[2024-12-03] MEDS: HEPARIN 5000 UNITS SC ×2 (08:31→20:36)
[2024-12-03] MEDS: LIDOCAINE 4% PATCH 1 PATCH TOPICAL (08:32)
[2024-12-03] MEDS: OCEAN, SALINE MIST 2 SPRAYS NASAL ×2 (08:33→20:37)
[2024-12-03] MEDS: VITAMIN B-12 1000 MCG PO (08:33)
[2024-12-03] MEDS: ASPIR LOW (ENTERIC COATED) 81 MG PO (08:33)
[2024-12-03] MEDS: VITAMIN B1 100 MG PO ×2 (08:33→20:36)
[2024-12-03] MEDS: PROTONIX 40 MG PO (08:33)
[2024-12-03] MEDS: FOLVITE 1 MG PO (08:33)
[2024-12-03] MEDS: OSCAL 500 + D 500 MG PO ×2 (08:33→20:36)
[2024-12-03] MEDS: CYMBALTA DELAYED RELEASE 60 MG PO (08:33)
[2024-12-03] MEDS: TYLENOL 1000 MG PO (08:51)
[2024-12-03 08:54] LABS: % Basophils 0.4 % (0-2); % Eosinophils 2.6 % (0-6); % Immature Granulocytes 0.9 % (0-0.5); % Monocytes 10.8 % (1.7-9.3); % Neutrophils 77.3 % (42.2-75.2); Absolute Eosinophils 0.2 10^3/uL (0-0.7); Absolute Immature Granulocytes 0.1 10^3/uL (0-0.05); Absolute Lymphocytes 0.6 10^3/uL (1.2-3.4); Absolute Monocytes 0.8 10^3/uL (0.1-0.6); Absolute Neutrophils 5.4 10^3/uL (1.4-6.5); Hematocrit 29.8 % (39.0-52.0); Hemoglobin 10.4 g/dL (13.0-18.0); Mean Corp Hgb Conc. 34.9 g/dL (33.0-37.0); Mean Corpuscular Hgb 28.7 pg (27.0-31.0); Mean Corpuscular Volume 82.3 fL (80.0-94.0); Mean Platelet Volume 10.4 fL (7.4-10.4); Nucleated Red Blood Cells % 0 % (-); Platelet Count 135 10^3/uL (130-400); Red Blood Cell Count 3.62 10^6/uL (4.70-6.10); Red Cell Dist. Width 14.7 % (11.5-14.5)
[2024-12-03 09:31] LABS: Blood Urea Nitrogen 17 mg/dl (9-20); Calcium 7.8 mg/dl (8.4-10.2); Carbon Dioxide 21 mmol/L (22-30); Chloride 102 mmol/L (98-107); Estimated Creatinine Clearance 54 ml/min; Glucose 78 mg/dl (70-99); Magnesium 1.9 mg/dl (1.6-2.3); Potassium 3.2 mmol/L (3.5-5.1); Sodium 134 mmol/L (135-145); eGFR > 60.00
--- NOTE | 2024-12-03 11:50 | W.PN.ID1 ---
Date of Service
Date of Service: December 03, 2024
Today's Communication
- transition to oral doxycycline for a 7 day total course; day 4
- follow up with pcp
Assessment / Plan
RUL and RML Pneumonia - likely aspiration
COPD
Probable ESBL K Pneumoniae bacteremia
GRETA - improving
Pacemaker
- source of bacteremia likely pulmonary
- repeat blood cultures x2 in progress no growth to date
- sputum culture if able to obtain
- transition to oral doxycycline for a 7 day total course; day 4
- follow up with pcp
Chief Complaint
-: Pneumonia (likely aspiration)
Subjective / Review of Systems
afebrile
bp stable
20 beat run of VT overnight
Vital Signs / Physical Exam
Vital Signs
Vital Signs
Temp Pulse Resp BP Pulse Ox
98.3 F 78 16 134/69 94
12/03/24 07:45 12/03/24 11:14 12/03/24 11:14 12/03/24 07:45 12/03/24 11:14
Physical Exam
Constitutional: No Acute Distress and Chronically Ill
Cardiovascular: Regular Rate and S1/S2; Negative Murmur or Rub
Pulmonary: Clear and Symmetric; Negative Wheezes or Rales
Gastrointestinal: Soft, Non Tender, Non Distended and Normal Bowel Sounds
Skin: Warm and Dry; Negative Rash or Jaundice
Objective Data
Lab Data
Lab Results
12/03/24 06:23
12/03/24 06:23
PT 13.9 Sec (11.4-14.6) 11/29/24 13:34
INR 1.04 11/29/24 13:34
APTT 25.6 Sec (23.4-35.0) 11/29/24 13:34
Estimated Creat Clear 54 ml/min 12/03/24 06:23
Lactic Acid 2.0 mmol/L (0.7-2.0) 11/29/24 16:02
Total Bilirubin 2.0 mg/dl (0.2-1.3) H 11/30/24 07:00
GGT Cancelled 11/29/24 17:59
AST 18 U/L (17-59) 11/30/24 07:00
ALT 11 U/L (0-50) 11/30/24 07:00
Alkaline Phosphatase 50 U/L (38-126) 11/30/24 07:00
Most recent labs reviewed.
Micro Results:
11/29/24 15:05 Blood Culture - Preliminary
Blood/Venous No Growth in 72 hours- Final report to follow
11/30/24 14:34 Blood Culture - Preliminary
Blood/Venous No Growth in 48 hours- Final report to follow
11/30/24 13:50 Blood Culture - Preliminary
Blood/Venous No Growth in 48 hours- Final report to follow
11/29/24 15:05 Blood Culture - Preliminary
Blood/Venous Klebsiella pneumoniae-ESBL
Gram Stain - Preliminary
11/30/24 10:07 MRSA Screen - Final
Nose Staph aureus MRSA
11/30/24 17:32 Urine Culture - Final
Urine NO GROWTH
11/30/24 07:00 Nasal Screen MRSA (PCR) - Final
Nose MRSA not detected - performed by PCR methodology.
11/29/24 16:02 Influenza Types A & B (JIE) - Final
Nasal Swab Negative for Influenza A & B, NAAT
Negative results must be combined with clinical observations
and patient history.
Nucleic Acid Amplification test (NAAT)performed on the
[employer] platform.
[2024-12-03] MEDS: VIBRAMYCIN 100 MG PO ×2 (13:10→20:36)
--- NOTE | 2024-12-03 13:23 | CM ---
Addendum entered by Steff Sterling RN 12/03/24 14:56:
IMM reviewed.
Original Note:
Reviewed the chart notes. Patient on room air. CM continues to be available to patient/family and is monitoring medical plan for needs at discharge.
Plan: Discharge to home with Dieudonne GOLDSMITH.
Dieudonne GOLDSMITH fax: [phone]
--- NOTE | 2024-12-03 14:35 | W.PN.HOSP.TC ---
Today's Communication/Plan
-
Replace potassium
Psychiatric evaluation
Discharge planning for Tomorrow
Assessment / Plan
Assessment / Plan
With [id number] chest pain and syncope. Patient was drinking 8-10 beers. He normally drinks only on Friday he woke up feeling dizzy. Had vomiting and a syncopal episode. Patient also had diarrhea when he fell he hit the right side of
the chest
CT chest without contrast-large amount of consolidation throughout the Right Lung, Small right pleural effusion, Unchanged biapical scarring, Cholelithiasis, Hepatic cysts.
CT Head- No acute intracranial abnormality.Small foci of decreased attenuation superior right parietal lobe question small chronic infarcts.
Patient is awake and alert oriented
Cardiovascular system S1-S2 appreciated
Right chest wall tenderness
Abdomen soft and nontender
No pedal edema
Neuro Exam is nonfocal
CT abdomen and pelvis-consolidations with surrounding groundglass opacities in the right lower and middle lobes with small right pleural effusion represent multifocal pneumonia. Cholelithiasis with no evidence of cholecystitis. Colonic
diverticulosis.
# Acute hypoxic respiratory failure possible aspiration Pneumonia secondary to vomiting and syncope
Sepsis secondary to above
ESBL Klebsiella in 1 set of blood cultures
Wean oxygen as tolerated
Sputum culture
IV Zosyn changed to Doxy
Speech evaluation appreciated IDDSI 6 diet however patient prefers pur�ed diet.
Video swallow today
Incentive spirometry to be encouraged
ID eval appreciated
# UDS - With Opiates and Fentanyl. Not sure if got them here ,
# Septic shock versus combination of septic shock and hypovolemic shock
ESBL Klebsiella in 1 set of blood culture repeat cultures negative
Zosyn changed to Doxy
# Hypokalemia- Replace
# Lactic acidosis-Resolved.
# Acute kidney injury-likely secondary to hypotension prerenal state-
Creatinine improving
Resdtart losartan at 50 mg
Urinalysis noted. Urine cultures neg
CT A/P with out contrast with no obstruction
# NSVT-echo noted. Unclear why the patient is not on beta-isabelle, spoke to Shannon from [place] cardiology office. She discussed with Dr. Ellison his mixer pigment. Patient has a history of hypotension and that is why. Discussed that we are going to
start him on a low-dose of beta-isabelle. (
Started Metoprolol 12.5 mg
# Syncope was likely vasovagal versus hypovolemic from vomiting
# Right chest wall contusion , Right scalp area contusion/abrasion-from fall-trauma
Icing, lidocaine patch
# History of hypertension-on losartan as outpatient-hold. While the patient is on beta-isabelle I will do a reduced dose of losartan which I also discussed with cardiology.
# Hypothyroidism-continue Synthroid
# Hyperlipidemia-continue statin
# Prostate cancer with radiation 2021-continue Flomax. Follows with [place] urology
# Recent alcohol intoxication last drink was 11/28/2024
No signs of withdrawal
Thiamine
# Cardiomyopathy with ejection fraction 40%-followed by [place] cardiology Dr. Meyers
Echo 11/30/2024-mildly reduced systolic function. EF 45%. Stage I diastolic dysfunction. Global hypokinesis.
Discussed with Shannon who is a nurse practitioner. They will bring him in to be seen soon after discharge.
# Permanent pacemaker placement 2018 at [place]
# COPD-on Spiriva and Wixela inhalers as outpatient-continue equivalent and and as needed albuterol
# History of left carotid stenosis status post right carotid stent 03/15/2014 Dr. Garcia [facility]-continue Aspirin and Statin
# Depression/anxiety/PTSD-continue Cymbalta. Patient states that this is not working really well. Requested psychiatry evaluation
# Left-sided head and neck cancer 20 years ago with radiation 2000
# Hypoalbuminemia
# Cholelithiasis
# Diverticulosis
# Vit D Def- Replace
# Cigar Smoker-Cessation Counseling
# DVT prophylaxis-subcutaneous heparin
# CODE STATUS-Limited DNR-no CPR
D/W RN
Discussed with patient's daughter on the phone
D/W Case management
Anticipated Discharge: Within 24 hours
Subjective/Interval History
-
Date of Service: December 03, 2024
Objective Data
-
Labs:
Laboratory Results
12/03/24
06:23
WBC 7.0
Hgb 10.4 L
Hct 29.8 L
Plt Count 135
Sodium 134 L
Potassium 3.2 L
Chloride 102
Carbon Dioxide 21 L
BUN 17
Creatinine 1.1
Glucose 78
Calcium 7.8 L
Vital Signs:
Vital Signs
Temp Pulse Resp BP Pulse Ox
98.5 F 72 20 151/70 95
12/03/24 12:54 12/03/24 12:54 12/03/24 12:54 12/03/24 12:54 12/03/24 12:54
I&O
12/02/24 12/03/24 12/04/24
06:59 06:59 06:59
Intake Total 800 / 800 1560 / 1560
Output Total 450 / 450 1150 / 1150
Balance 350 / 350 410 / 410
[2024-12-03] MEDS: KCL 270 MEQ IV (15:07)
[2024-12-03] MEDS: COZAAR 50 MG PO (15:15)
[2024-12-03] MEDS: KCL 20 MEQ PO (15:16)
--- NOTE | 2024-12-03 16:31 | CON.MD ---
Consultation - Medical
-
79 yr old M presenting after a fall in the context of excessive EtOH intake. Psychiatry consulted for concerns of depression contributing to EtOH use.
Pt seen & evaluated at bedside. Is currently taking Cymbalta 60mg - has been taking for 20 yrs & says it never helped, though did cause long-standing sexual side effects. Prescribed by psychiatrist at [facility] whom pt sees every 3 months and admits there
is not much time offered for significant discussions at these visits.
Initially started Cymbalta for PTSD - pt is [place] and experienced extensive trauma during this time. 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
calling them awful names, etc. Says that it took him a long time to work through all this and accept/process these life experiences. Attended groups at [facility] but these were not very helpful - describes vets being told to discuss war memories which most
of them found more traumatic than helpful. 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 Although still has
difficult days at times, he denies being acutely depressed and feels that he has worked through much of the acuity of PTSD sxs. When he is struggling emotionally, he leans on his support network and this helps quite a bit.
He admits that he has been taking Cymbalta 60mg every other day for a few months now and feels the same with no recurrent of sxs. He continues to experience sexual SEs and is hoping to taper off cymbalta completely.
He does acknowledge that his EtOH use was excessive recently - reports that he usually has 5 drinks, generally drinks on weekends only. this past weekend had 5 beers, but also several 'jello shots' - pt said 'you can bet I'm never drinking like that
again! Not after all this!'
PTSD, as per hx, not currently active acutely
MSE: calm,cooperative,pleasant,speech is normal rate & rhythm,,mood is OK, affect is appropriate & congruent to mood,, thought process is logical & goal directed, thought content: denies SI/HI/AVH/delusions. AAOx3. Memory not formally tested.
Insight fair. Judgement fair
Plan:
Taking Cymbalta 60mg every other day for few months, so effectively 30mg daily - denies sxs recurrence, denies w/d sxs
- ordered cymbalta 20mg daily, can take for 1 month and then stop
Psychiatry will follow loosely
[2024-12-03] MEDS: TOPROL XL 12.5 MG PO (17:04)
[2024-12-03] MEDS: LIPITOR 40 MG PO (17:08)
[2024-12-03] MEDS: FLOMAX 0.4 MG PO (17:08)
[2024-12-04 03:05] VITALS: BP 158/73
--- NOTE | 2024-12-04 04:15 | PTCARENOTE ---
Patient complained of hallucinations... seeing spider webs on the braga and his up in a window at the ceiling. He doesn't see this when the lights are bright. Advised covering provider. Will leave the lights on for the rest of this night.
[2024-12-04] MEDS: SYNTHROID 100 MCG PO (05:01)
--- NOTE | 2024-12-04 05:54 | PTCARENOTE ---
Patient slept very little this shift. He thought he was in his bed at home and called his daughter. He was re-oriented to the hospital. A kellie rose drink was provided as requested. He agreed to turn off the TV and try to shut his eyes and sleep.
[2024-12-04 06:00] VITALS: BMI 24.1
[2024-12-04 07:00] VITALS: BP 157/80
[2024-12-04] MEDS: SPIRIVA RESPIMAT 2.5 MCG 2 PUFF INH (07:08)
[2024-12-04] MEDS: VENTOLIN NEBULES 2.5 MG INH ×4 (07:08→20:34)
[2024-12-04] MEDS: ADVAIR HFA 115/21 MCG INHALER 2 PUFF INH ×2 (07:11→20:34)
[2024-12-04] MEDS: ASPIR LOW (ENTERIC COATED) 81 MG PO (08:10)
[2024-12-04] MEDS: PROTONIX 40 MG PO (08:10)
[2024-12-04] MEDS: VITAMIN B-12 1000 MCG PO (08:10)
[2024-12-04] MEDS: VIBRAMYCIN 100 MG PO ×2 (08:10→21:19)
[2024-12-04] MEDS: COZAAR 50 MG PO ×2 (08:10→12:40)
[2024-12-04] MEDS: VITAMIN D3 (cholecalciferol) 25 MCG PO (08:10)
[2024-12-04] MEDS: LIDOCAINE 4% PATCH 1 PATCH TOPICAL (08:11)
[2024-12-04] MEDS: CYMBALTA DELAYED RELEASE 20 MG PO (08:11)
[2024-12-04] MEDS: VITAMIN B1 100 MG PO ×2 (08:11→21:20)
[2024-12-04] MEDS: HEPARIN 5000 UNITS SC ×2 (08:11→21:20)
[2024-12-04] MEDS: OSCAL 500 + D 500 MG PO ×2 (08:11→21:20)
[2024-12-04] MEDS: FOLVITE 1 MG PO (08:11)
[2024-12-04] MEDS: OCEAN, SALINE MIST 2 SPRAYS NASAL ×2 (08:12→21:20)
[2024-12-04 09:51] LABS: % Basophils 0.4 % (0-2); % Eosinophils 4.1 % (0-6); % Immature Granulocytes 1.3 % (0-0.5); % Lymphocytes 11.2 % (20.5-51.1); % Monocytes 16.6 % (1.7-9.3); % Neutrophils 66.4 % (42.2-75.2); Absolute Eosinophils 0.2 10^3/uL (0-0.7); Absolute Immature Granulocytes 0.1 10^3/uL (0-0.05); Absolute Lymphocytes 0.5 10^3/uL (1.2-3.4); Absolute Monocytes 0.8 10^3/uL (0.1-0.6); Absolute Neutrophils 3.1 10^3/uL (1.4-6.5); Hematocrit 32.1 % (39.0-52.0); Mean Corp Hgb Conc. 34.3 g/dL (33.0-37.0); Mean Corpuscular Hgb 27.8 pg (27.0-31.0); Mean Corpuscular Volume 81.3 fL (80.0-94.0); Mean Platelet Volume 10.6 fL (7.4-10.4); Nucleated Red Blood Cells % 0 % (-); Platelet Count 139 10^3/uL (130-400); Red Blood Cell Count 3.95 10^6/uL (4.70-6.10); Red Cell Dist. Width 14.6 % (11.5-14.5); White Blood Cell Count 4.6 10^3/uL (4.8-10.8)
[2024-12-04 10:12] LABS: Blood Urea Nitrogen 12 mg/dl (9-20); Calcium 7.9 mg/dl (8.4-10.2); Carbon Dioxide 23 mmol/L (22-30); Chloride 104 mmol/L (98-107); Estimated Creatinine Clearance 67 ml/min; Glucose 102 mg/dl (70-99); Potassium 3.3 mmol/L (3.5-5.1); Sodium 135 mmol/L (135-145); eGFR > 60.00
--- NOTE | 2024-12-04 11:27 | W.PN.HOSP.TC ---
Today's Communication/Plan
-
Stop metoprolol
Increase losartan
Head CT
Assessment / Plan
Assessment / Plan
With -tjbf-tor chest pain and syncope. Patient was drinking 8-10 beers. He normally drinks only on Friday he woke up feeling dizzy. Had vomiting and a syncopal episode. Patient also had diarrhea when he fell he hit the right side of
the chest
CT chest without contrast-large amount of consolidation throughout the Right Lung, Small right pleural effusion, Unchanged biapical scarring, Cholelithiasis, Hepatic cysts.
CT Head- No acute intracranial abnormality.Small foci of decreased attenuation superior right parietal lobe question small chronic infarcts.

Cardiovascular system S1-S2 appreciated
Right chest wall tenderness
Abdomen soft and nontender
No pedal edema
Neuro Exam is nonfocal
CT abdomen and pelvis-consolidations with surrounding groundglass opacities in the right lower and middle lobes with small right pleural effusion represent multifocal pneumonia. Cholelithiasis with no evidence of cholecystitis. Colonic
diverticulosis.
# TME-overnight was confused. Family asking if metoprolol can be discontinued as this is a new medicine for him. Another new medicine is doxycycline which family states that he has had in the past. I discussed that it is rare that metoprolol can
cause confusion. But I have discontinued it.
Will get an CT of the brain
Neuroexam seems to be nonfocal
# Acute hypoxic respiratory failure possible aspiration Pneumonia secondary to vomiting and syncope
Sepsis secondary to above
ESBL Klebsiella in 1 set of blood cultures
Wean oxygen as tolerated
Sputum culture
IV Zosyn changed to Doxy
Speech evaluation appreciated IDDSI 6 diet
Video swallow noted
Incentive spirometry to be encouraged
ID eval appreciated
# UDS -patient got fentanyl and morphine in the ER
# Septic shock versus combination of septic shock and hypovolemic shock
ESBL Klebsiella in 1 set of blood culture repeat cultures negative
Zosyn changed to Doxy
# Hypokalemia- Replace
# Lactic acidosis-Resolved.
# Acute kidney injury-likely secondary to hypotension prerenal state-
Creatinine improving
Increase losartan to 100 mg
Urinalysis noted. Urine cultures neg
CT A/P with out contrast with no obstruction
# NSVT-echo noted. No further episodes
Started Metoprolol 12.5 mg-discontinued 12/04/2024
# Syncope was likely vasovagal versus hypovolemic from vomiting
# Right chest wall contusion , Right scalp area contusion/abrasion-from fall-trauma
Icing, lidocaine patch
# History of hypertension-started beta-isabelle which is discontinued. Losartan to be continued
# Hypothyroidism-continue Synthroid
# Hyperlipidemia-continue statin
# Prostate cancer with radiation 2021-continue Flomax. Follows with [place] [facility]
# Recent alcohol intoxication last drink was 11/28/2024
No signs of withdrawal
Thiamine
# Cardiomyopathy with ejection fraction 40%-followed by [place] cardiology Dr. Meyers
Echo 11/30/2024-mildly reduced systolic function. EF 45%. Stage I diastolic dysfunction. Global hypokinesis.
Discussed with Shannon who is a nurse practitioner. They will bring him in to be seen soon after discharge.
# Permanent pacemaker placement 2018 at [place]
# COPD-on Spiriva and Wixela inhalers as outpatient-continue equivalent and and as needed albuterol
# History of left carotid stenosis status post right carotid stent 03/15/2014 Dr. Garcia [facility]-continue Aspirin and Statin
# Depression/anxiety/PTSD-continue Cymbalta. Patient states that this is not working really well. Requested psychiatry evaluation-appreciated. Cymbalta decreased to 20 mg daily-discontinued that
# Left-sided head and neck cancer 20 years ago with radiation 2000
# Hypoalbuminemia
# Cholelithiasis
# Diverticulosis
# Vit D Def- Replace
# Cigar Smoker-Cessation Counseling
# DVT prophylaxis-subcutaneous heparin
# CODE STATUS-Limited DNR-no CPR
D/W RN
Discussed with patient's daughter at bedside
Anticipated Discharge: Within 24 hours
Subjective/Interval History
-
Date of Service: December 04, 2024
Objective Data
-
Labs:
Laboratory Results
12/04/24
08:49
WBC 4.6 L
Hgb 11.0 L
Hct 32.1 L
Plt Count 139
Sodium 135
Potassium 3.3 L
Chloride 104
Carbon Dioxide 23
BUN 12
Creatinine 0.9
Glucose 102 H
Calcium 7.9 L
Vital Signs:
Vital Signs
Temp Pulse Resp BP Pulse Ox
98.2 F 77 18 157/80 94
12/04/24 07:00 12/04/24 11:12 12/04/24 11:12 12/04/24 07:00 12/04/24 07:12
I&O
12/03/24 12/04/24 12/05/24
06:59 06:59 06:59
Intake Total 1560 / 1560 1220 / 1220
Output Total 1150 / 1150
Balance 410 / 410 1220 / 1220
[2024-12-04 11:30] VITALS: BP 158/70
--- NOTE | 2024-12-04 11:48 | W.PN.UPDATE ---
Update Note
Progress Note Update
Psychiatry follow up. Chart reviewed. Cymbalta reduced to 20mg daily yesterday with plan for discontinuation in a month secondary to poor efficacy and side effects. Patient states he has follow up outpatient psych at the [facility] scheduled and can discuss
alternative medication options if needed.
MSE- good eye contact. calm. fluent speech. logical. denies SI/HI. no signs of darvin or psychosis. fully oriented. Fair I/J
A/P- PTSD as per hx
Continue cymbalta 20mg daily for 1 month and then stop; Mental health follow up at the [facility] as an outpatient already scheduled per patient. Can start new medication there if clinically indicated. Psychiatry will sign off. Please contact team with
further questions or concerns.
[2024-12-04] MEDS: KCL 40 MEQ PO (12:41)
[2024-12-04 15:32] VITALS: BP 154/76
[2024-12-04] MEDS: LIPITOR 40 MG PO (18:00)
[2024-12-04] MEDS: FLOMAX 0.4 MG PO (18:01)
[2024-12-04 19:03] VITALS: BP 144/71
[2024-12-04] MEDS: KCL 20 MEQ PO (21:19)
[2024-12-04 23:35] VITALS: BP 146/79
[2024-12-05 03:12] VITALS: BP 156/74
[2024-12-05] MEDS: SYNTHROID 100 MCG PO (05:00)
[2024-12-05 06:00] VITALS: BMI 23.7
[2024-12-05] MEDS: VENTOLIN NEBULES 2.5 MG INH ×2 (07:36→11:23)
[2024-12-05] MEDS: SPIRIVA RESPIMAT 2.5 MCG 2 PUFF INH (07:36)
[2024-12-05] MEDS: ADVAIR HFA 115/21 MCG INHALER 2 PUFF INH (07:37)
[2024-12-05 07:58] VITALS: BP 167/92
[2024-12-05] MEDS: FOLVITE 1 MG PO (08:55)
[2024-12-05] MEDS: CYMBALTA DELAYED RELEASE 20 MG PO (08:55)
[2024-12-05] MEDS: VITAMIN B1 100 MG PO (08:55)
[2024-12-05] MEDS: VITAMIN B-12 1000 MCG PO (08:55)
[2024-12-05] MEDS: ASPIR LOW (ENTERIC COATED) 81 MG PO (08:55)
[2024-12-05] MEDS: VIBRAMYCIN 100 MG PO (08:55)
[2024-12-05] MEDS: VITAMIN D3 (cholecalciferol) 25 MCG PO (08:55)
[2024-12-05] MEDS: COZAAR 100 MG PO (08:55)
[2024-12-05] MEDS: OSCAL 500 + D 500 MG PO (08:55)
[2024-12-05] MEDS: PROTONIX 40 MG PO (08:55)
[2024-12-05] MEDS: LIDOCAINE 4% PATCH 1 PATCH TOPICAL (08:56)
[2024-12-05] MEDS: HEPARIN 5000 UNITS SC (08:56)
[2024-12-05] MEDS: OCEAN, SALINE MIST 2 SPRAYS NASAL (08:56)
[2024-12-05 09:49] LABS: Blood Urea Nitrogen 13 mg/dl (9-20); Calcium 8.1 mg/dl (8.4-10.2); Carbon Dioxide 23 mmol/L (22-30); Chloride 104 mmol/L (98-107); Estimated Creatinine Clearance 75 ml/min; Glucose 88 mg/dl (70-99); Potassium 4.1 mmol/L (3.5-5.1); Sodium 134 mmol/L (135-145); eGFR > 60.00
--- NOTE | 2024-12-05 10:12 | W.PN.HOSP.TC ---
Today's Communication/Plan
-
Discharge
Assessment / Plan
Assessment / Plan
With -jidm-pdy chest pain and syncope. Patient was drinking 8-10 beers. He normally drinks only on Friday he woke up feeling dizzy. Had vomiting and a syncopal episode. Patient also had diarrhea when he fell he hit the right side of
the chest
CT chest without contrast-large amount of consolidation throughout the Right Lung, Small right pleural effusion, Unchanged biapical scarring, Cholelithiasis, Hepatic cysts.
CT Head- No acute intracranial abnormality.Small foci of decreased attenuation superior right parietal lobe question small chronic infarcts.

Cardiovascular system S1-S2 appreciated
Chest- few rales right
Abdomen soft and nontender
No pedal edema
Neuro Exam is nonfocal
CT abdomen and pelvis-consolidations with surrounding groundglass opacities in the right lower and middle lobes with small right pleural effusion represent multifocal pneumonia. Cholelithiasis with no evidence of cholecystitis. Colonic
diverticulosis.
# TME-Resolving. Pt AAO3 today.
# Acute hypoxic respiratory failure possible aspiration Pneumonia secondary to vomiting and syncope
Sepsis secondary to above
ESBL Klebsiella in 1 set of blood cultures
Wean oxygen as tolerated
Sputum culture
IV Zosyn changed to Doxy
Speech evaluation appreciated IDDSI 6 diet
Video swallow noted
Incentive spirometry to be encouraged
ID eval appreciated
# UDS -patient got fentanyl and morphine in the ER
# Septic shock versus combination of septic shock and hypovolemic shock
ESBL Klebsiella in 1 set of blood culture repeat cultures negative
Zosyn changed to Doxy
# Hypokalemia- Replaced
# Lactic acidosis-Resolved.
# Acute kidney injury-likely secondary to hypotension prerenal state-
Creatinine improving
Increase losartan to 100 mg
Urinalysis noted. Urine cultures neg
CT A/P with out contrast with no obstruction
# NSVT-echo noted. No wall motion abnormalities. No further episodes
Started Metoprolol 12.5 mg-discontinued 12/04/2024 ( Pt was confused but I am not sure if this contributed. DC ed per family concern)
Discussed with daughter. They have a call from senior electrical controls engineer office she is to schedule an appointment after calling back tomorrow.
# Syncope was likely vasovagal versus hypovolemic from vomiting
# Right chest wall contusion , Right scalp area contusion/abrasion-from fall-trauma
Icing, lidocaine patch
# History of hypertension-started beta-isabelle which is discontinued as above. Losartan to be continued
# Hypothyroidism-continue Synthroid
# Hyperlipidemia-continue statin
# Prostate cancer with radiation 2021-continue Flomax. Follows with [facility]
# Recent alcohol intoxication last drink was 11/28/2024
No signs of withdrawal
Thiamine
# Cardiomyopathy with ejection fraction 40%-followed by [facility] Dr. Meyers
Echo 11/30/2024-mildly reduced systolic function. EF 45%. Stage I diastolic dysfunction. Global hypokinesis.
Discussed with Shannon who is a nurse practitioner. They will bring him in to be seen soon after discharge.
Discussed with daughter regarding carvedilol. Patient's takes it and daughter is familiar with that medicine.
She wants to discuss with OP cardiology to get it started.
# Permanent pacemaker placement 2018 at [facility]
# COPD-on Spiriva and Wixela inhalers as outpatient-continue equivalent and and as needed albuterol
# History of left carotid stenosis status post right carotid stent 03/15/2014 Dr. Garcia [facility]-continue Aspirin and Statin
# Depression/anxiety/PTSD-continue Cymbalta. Patient states that this is not working really well. Requested psychiatry evaluation-appreciated. Cymbalta decreased to 20 mg daily
# Left-sided head and neck cancer 20 years ago with radiation 2000
# Hypoalbuminemia
# Cholelithiasis
# Diverticulosis
# Vit D Def- Replace
# Cigar Smoker-Cessation Counseling
# DVT prophylaxis-subcutaneous heparin
# CODE STATUS-Limited DNR-no CPR
D/W RN
Discussed with patient's daughter at bedside.
We had reviewed that he could get an MRI Friday or Friday because of the pacemaker if he was not getting better. Daughter feels that he is getting better and I agree that he may be better at home as delirium can be also be secondary to being here
in the hospital. Alcohol use could have played a role. Daughter is going to be staying with him for the next 2 days.
Daughter also indicated that she saw a message from cardiology office who called him to get him an appointment. She will call them back tomorrow to get the appointment scheduled cardiology. Also discussed about Coreg.
Labs noted
More than 30 minutes spent in discharge including
Final examination of the patient
Summarizing hospital stay
Instructions for continuing care to all relevant caregivers
Preparation of discharge records, prescriptions, and referral forms
Total time spent (in minutes): 40 min
Anticipated Discharge: Today
Subjective/Interval History
-
Date of Service: December 05, 2024
Objective Data
-
Labs:
Laboratory Results
12/05/24
09:11
Sodium 134 L
Potassium 4.1
Chloride 104
Carbon Dioxide 23
BUN 13
Creatinine 0.8
Glucose 88
Calcium 8.1 L
Vital Signs:
Vital Signs
Temp Pulse Resp BP Pulse Ox
98.2 F 74 18 167/92 98
12/05/24 07:58 12/05/24 07:58 12/05/24 07:58 12/05/24 07:58 12/05/24 07:58
I&O
12/04/24 12/05/24 12/06/24
06:59 06:59 06:59
Intake Total 1220 / 1220 720 / 720
Balance 1220 / 1220 720 / 720
[2024-12-05 11:02] VITALS: BP 159/93
--- NOTE | 2024-12-05 12:44 | CM ---
Explained IMM benefit to patient's daughter; form signed @ 1230
Plan: Discharge to home with [facility] services;
--- NOTE | 2024-12-05 14:24 | W.DS.TRANS ---
Addendum entered and electronically signed by Jennifer Aguirre MD 12/05/24 14:27:
Dictation- [id number]
Original Note:
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
-
Discharge Instructions:
Discharge Diagnosis/Procedures Aspiration pneumonia
ESBL Klebsiella bacteremia
Acute kidney injury
Vitamin D deficiency
Hypertension
Hypothyroidism
High cholesterol
Prostate cancer history
Cardiomyopathy
Pacemaker
COPD
Depression
Diverticulosis
Gallstones
Diet 2 Gram Sodium
Additional Diets 50 ounce FR
Activity As tolerated,With assistance
Driving Restrictions As prior to admission
Blood Work cbc,bmp 1 week
Others Tests Chest x-ray 4 to 6 weeks
Other Services VN
Specialty Instructions Weigh Daily
Instructions:
Stand-Alone Forms:
Changes to Home Medications: Yes
Discharge Medications:
DC Medications w/original date entered in [employer] [facility]
atorvastatin 80 mg tablet 40 mg PO QPM High Cholesterol 05/23/23
levothyroxine 100 mcg tablet 100 mcg PO DAILY Thyroid 05/23/23
losartan 100 mg tablet 100 mg PO DAILY Blood Pressure 05/23/23
omeprazole 40 mg capsule,delayed release 40 mg PO DAILY Gastrointestinal Issue 05/23/23
albuterol sulfate 90 mcg/actuation aerosol inhaler 2 puff inhalation R Q4 PRN sob/wheezing 02/11/24
aspirin 81 mg tablet,delayed release 81 mg PO DAILY Blood Clot Prevention/Tx 02/11/24
fluticasone 250 mcg-salmeterol 50 mcg/dose blistr powdr for inhalation (Wixela Inhub) 1 inh inhalation R BID Lung/Breathing Issues 02/11/24
tamsulosin 0.4 mg capsule 0.4 mg PO QPM Urinary Issue 02/11/24
tiotropium bromide 18 mcg capsule with inhalation device (Spiriva with HandiHaler) 1 cap inhalation R DAILY Lung/Breathing Issues 02/11/24
Flonase 2 spray intranasal DAILY AT 0700 Congestion 11/29/24
sodium chloride 0.65 % nasal spray aerosol 2 spray intranasal BID Congestion 11/29/24
acetaminophen 500 mg tablet (Tylenol Extra Strength) 1,000 mg (2 x 500 mg) PO Q8HPRN PRN pain #0 tabs 12/05/24
calcium 500 mg (as carbonate)-vitamin D3 5 mcg (200 unit) tablet (Oyster Shell Calcium-Vitamin D3) 1 tab PO BID Supplement #0 tabs 12/05/24
cholecalciferol (vitamin D3) 25 mcg (1,000 unit) tablet 25 mcg PO DAILY Vit D Defeciency #0 tabs 12/05/24
cyanocobalamin (vitamin B-12) 1,000 mcg tablet (Vitamin B-12) 1,000 mcg PO DAILY Supplement #30 tabs 12/05/24
doxycycline hyclate 100 mg capsule 100 mg PO Q12 Infection #3 caps 12/05/24
duloxetine 20 mg capsule,delayed release 20 mg PO DAILY Mental Health/Anxiety #30 caps 12/05/24
thiamine mononitrate (vit B1) 100 mg tablet 100 mg PO DAILY Supplement #20 tabs 12/05/24
Home Medication Changes
new
Cholecalciferol (vitamin D3) 25 mcg (1,000 unit) tablet 25 mcg PO DAILY Vit D Defeciency #0 tabs 12/05/24
cyanocobalamin (vitamin B-12) 1,000 mcg tablet (Vitamin B-12) 1,000 mcg PO DAILY Supplement #30 tabs 12/05/24
doxycycline hyclate 100 mg capsule 100 mg PO Q12 Infection #3 caps 12/05/24
Dose change Cymbalta
Pending Results: No
== END 2024-12-05 12:45 | disposition home health service (06) | DRG 871 ==
LOC: 2 NORTH 16:27
PROVIDERS: Clinical Nurse Specialist Family Health; ADMITTING PHYSICIAN Hospitalist; ATTENDING PHYSICIAN Hospitalist; EMERGENCY PHYSICIAN Student in an Organized Health Care Education/Training Program; OTHER PHYSICIAN Psychiatry & Neurology Psychiatry; OTHER PHYSICIAN Student in an Organized Health Care Education/Training Program
DX: A41.59 Other Gram-negative sepsis (principal); J69.0 Pneumonitis due to inhalation of food and vomit; R65.21 Severe sepsis with septic shock; J96.01 Acute respiratory failure with hypoxia; R57.1 Hypovolemic shock; N17.9 Acute kidney failure, unspecified; I42.9 Cardiomyopathy, unspecified; J44.0 Chronic obstructive pulmonary disease with (acute) lower respiratory infection; I47.20 Ventricular tachycardia, unspecified; E87.20 Acidosis, unspecified; W08.XXXA Fall from other furniture, initial encounter; Y93.89 Activity, other specified; Y92.012 Bathroom of single-family (private) house as the place of occurrence of the external cause; E55.9 Vitamin D deficiency, unspecified; I10 Essential (primary) hypertension; E03.9 Hypothyroidism, unspecified; E78.00 Pure hypercholesterolemia, unspecified; Z85.46 Personal history of malignant neoplasm of prostate; Z95.0 Presence of cardiac pacemaker; F32.A Depression, unspecified; K57.30 Diverticulosis of large intestine without perforation or abscess without bleeding; K80.20 Calculus of gallbladder without cholecystitis without obstruction; S00.01XA Abrasion of scalp, initial encounter; S05.11XA Contusion of eyeball and orbital tissues, right eye, initial encounter; S20.211A Contusion of right front wall of thorax, initial encounter; Z87.01 Personal history of pneumonia (recurrent); Z92.3 Personal history of irradiation; F17.290 Nicotine dependence, other tobacco product, uncomplicated; K21.9 Gastro-esophageal reflux disease without esophagitis; F43.10 Post-traumatic stress disorder, unspecified; N40.0 Benign prostatic hyperplasia without lower urinary tract symptoms; J33.9 Nasal polyp, unspecified; E86.0 Dehydration; K76.89 Other specified diseases of liver; E87.6 Hypokalemia; Z11.52 Encounter for screening for COVID-19; F41.9 Anxiety disorder, unspecified; Z79.82 Long term (current) use of aspirin; Z79.899 Other long term (current) drug therapy; Z92.21 Personal history of antineoplastic chemotherapy
CPT/HCPCS: 70450; 71045; 71250; 74176; 74230; 80048; 80053; 80202; 80306; 80307; 81003; 81015; 82077; 82306; 82607; 82962; 82977; 83605; 83735; 83880; 84100; 84300; 84443; 84484; 85025; 85610; 85730; 87040; 87070; 87086; 87147; 87149; 87186; 87205; 87502; 87641; 87811; 92526; 92610; 92611; 93005; 93306; 94640; 96365; 96375; 97116; 97163; 97167; 97530; 97535; 99285

== ENCOUNTER → 2025-02-02 12:25 | Outpatient (REF) | payer OTHER, SELFPAY | LOC: HWRAD 12:25 | PROVIDERS: ATTENDING PHYSICIAN Nurse Practitioner Family; FAMILY PHYSICIAN Nurse Practitioner Adult Health | DX: Z87.01 Personal history of pneumonia (recurrent) (principal) | CPT/HCPCS: 71046 ==